=== PATIENT | male | born 1950 | race Two or more races ===

== ENCOUNTER 2020-12-29 10:47 | Outpatient (REF) | payer MEDICARE, SELFPAY | END 2020-12-29 10:48 | disposition home or self-care (01) | LOC: HO.LAB 10:47 | PROVIDERS: Visit Provider Internal Medicine | DX: Z20.822 Contact with and (suspected) exposure to COVID-19 (principal) | CPT/HCPCS: C9803; U0003; U0005 ==

== ENCOUNTER 2021-01-12 10:02 | Outpatient (REF) | payer MEDICARE, SELFPAY | END 2021-01-12 10:03 | disposition home or self-care (01) | LOC: HO.LAB 10:02 | PROVIDERS: Visit Provider Internal Medicine | DX: Z20.822 Contact with and (suspected) exposure to COVID-19 (principal) | CPT/HCPCS: C9803; U0003; U0005 ==

== ENCOUNTER 2021-11-09 08:29 | Outpatient (REF) | payer MEDICARE, SELFPAY ==
[2021-11-09 08:54] LABS: MANUAL DIFF FLAG NO
[2021-11-09 09:50] LABS: Basophils Absolute Auto 0.1 X10*3/uL (0.0-0.2); Basophils Percent Auto 0.7 % (0-2); Eosinophils Absolute Auto 0.5 X10*3/uL (0.0-0.4); Eosinophils Percent Auto 6.7 % (0-4); Hematocrit 43.7 % (42.0-52.0); Hemoglobin 14.3 g/dl (14.0-18.0); Imm Gran Abs Auto 0.03 X10*3/uL (0.00-0.03); Imm Gran Pct Auto 0.4 % (0.0-0.4); Lymphocytes Absolute Auto 2.9 X10*3/uL (1.2-4.9); Lymphocytes Percent Auto 40.7 % (20-40); Mean Corpuscular HGB Conc 32.7 g/dl (31.0-36.0); Mean Corpuscular Hemoglobin 29.5 pg (27.0-33.0); Mean Corpuscular Volume 90.3 fL (80.0-98.0); Mean Platelet Volume 11.6 fL (9.4-12.4); Monocytes Absolute Auto 0.7 X10*3/uL (0.1-1.2); Monocytes Percent Auto 10.2 % (2-11); Neutrophils Absolute Auto 2.9 x10*3/uL (2.0-8.3); Neutrophils Percent Auto 41.3 % (45-73); Platelet Count 208 X10*3/uL (160-400); Red Blood Count 4.84 X10*6/uL (4.60-5.80); Red Cell Distribution Width 12.1 % (11.0-16.0); White Blood Count 7.1 X10*3/uL (4.8-10.8)
[2021-11-09 10:17] LABS: Alanine Aminotransferase 16 U/L (0-40); Alkaline Phosphatase 62 U/L (39-117); Anion Gap 12 (12-20); Aspartate Amino Transferase 24 U/L (5-37); Bilirubin Total 0.9 mg/dL (0.0-1.0); Blood Urea Nitrogen 14 mg/dL (9-16); Calcium 9.3 mg/dL (8.4-10.2); Carbon Dioxide 31 mmol/L (22-29); Chloride 104 mmol/L (96-108); Cholesterol 186 mg/dL; Estimated Glomerular Filt Rate > 60; Glucose Random 106 mg/dL (60-115); HDL Cholesterol 57 mg/dL; LDL Cholesterol Calculated 117 mg/dl; Potassium 4.7 mmol/L (3.3-5.1); Sodium 142 mmol/L (135-145); Total Protein 7.1 g/dL (6.5-8.0); Triglycerides 64 mg/dL
[2021-11-09 10:42] LABS: Thyroid Stimulating Hormone 0.81 uIU/mL (0.32-4.0)
== END 2021-11-09 08:30 | disposition home or self-care (01) ==
LOC: HO.LAB 08:29
PROVIDERS: PCP Internal Medicine; Visit Provider Internal Medicine
DX: I10 Essential (primary) hypertension (principal); J45.909 Unspecified asthma, uncomplicated
CPT/HCPCS: 36415; 80053; 80061; 84443; 85025

== ENCOUNTER 2022-01-08 12:29 | Outpatient (REF) | payer MEDICARE, SELFPAY ==
--- NOTE | ~2022-01-08 | XR_ITS ---
EXAMINATION: XR ABDOMEN KUB CLINICAL INDICATION: Abdominal pain. COMPARISON: None TECHNIQUE: AP view of the abdomen. FINDINGS: The bowel gas pattern is nonspecific without any obstruction or ileus. There is no organomegaly. No radiopaque calculi seen. No gross bony abnormality. XR/XR KUB IMPRESSION: Unremarkable abdomen exam.
== END 2022-01-08 12:30 | disposition home or self-care (01) ==
LOC: HO.XRAY 12:29
PROVIDERS: PCP Internal Medicine; Visit Provider Internal Medicine
DX: K56.0 Paralytic ileus (principal)
CPT/HCPCS: 74018

== ENCOUNTER 2022-10-09 11:25 | Outpatient (REF) | payer MEDICARE, SELFPAY ==
[2022-10-09 11:56] LABS: COVID-19 Test Negative (Negative); IDNOW Serial# 16C4AD1C
== END 2022-10-09 11:26 | disposition home or self-care (01) ==
LOC: HO.LAB 11:25
PROVIDERS: Visit Provider Internal Medicine
DX: Z20.822 Contact with and (suspected) exposure to COVID-19 (principal)
CPT/HCPCS: 87635; C9803

== ENCOUNTER → 2023-02-13 12:39 | Outpatient (BNVA) | payer MEDICARE, SELFPAY | PROVIDERS: PCP Internal Medicine; Referring Provider Internal Medicine; Visit Provider Internal Medicine | DX: R07.2 Precordial pain (principal); R00.2 Palpitations; R00.0 Tachycardia, unspecified; I10 Essential (primary) hypertension | CPT/HCPCS: 93005; 99202 ==

== ENCOUNTER → 2023-03-05 13:55 | Outpatient (REF) | payer MEDICARE, SELFPAY ==
--- NOTE | 2023-03-05 13:58 | CA_ITS ---
Transthoracic Echocardiogram Patient (Last, First, Middle): Ethan Alvarez, Gender: Male Date of : 1950 Age: 72 Procedure Date: 03/05/2023 Procedure Type: Transthoracic Echocardiogram Location: OP Height: 172.72 cm Weight: 77.11 kg BSA: 1.91 m2 Heart Rate: 69 bpm BP: 146 / 80 mmHg Assistant General Manager: TO Referring MD: Kahlil Reyes MD Billing Rep: Tito Chamberlain MD Symptoms: R07.2 - Precordial pain Study Quality: Adequate ECG Rhythm: Sinus Conclusions: - 1. Normal LV systolic function with impaired relaxation filling pattern 2. Paradoxical low-flow severe aortic stenosis 3. Normal RV systolic pressure 4. No gross pericardial effusion Findings Left Ventricle Normal left ventricular size, thickness, and systolic function. The visually estimated ejection fraction is between 55-60%. Spectral Doppler is indicative of an impaired relaxation filling pattern. E/E prime ratio is between 8 and 15 consistent with indeterminate filling pressures. Right Ventricle Normal right ventricular cavity size and systolic function. Atria The left atrium is normal in size. There is no evidence of interatrial shunt. Aortic Valve There is moderate calcification of the aortic valve. There is moderate thickening of the aortic valve. There is severe aortic valve stenosis. The peak aortic gradient is 51 mmHg.The mean gradient is 25 mmHg. The aortic valve area is 0.70 cm2. There is no aortic valve regurgitation. Dimensionless index is 0.18, c/w severe aortic stenosis, with overall findings consistent with paradoxical low-flow aortic stenosis Mitral Valve There is moderate anterior and mild posterior mitral leaflet thickening. There is mild anterior mitral annular calcification. There is trace mitral valve regurgitation. There is no mitral valve stenosis. Pulmonic Valve The pulmonic valve was not well visualized. Tricuspid Valve Likely normal tricuspid valve structure and function. There is mild tricuspid valve regurgitation. The right ventricular systolic pressure is normal. The right ventricular systolic pressure is 27 mmHg. Normal right atrial pressure. There is no evidence of pulmonary hypertension. Great Vessels All visible segments of the aorta are normal in size. The pulmonary artery was not well visualized. Venous The inferior vena cava is normal in size and collapses greater than 50% with inspiration. Pericardium/Pleural There is no evidence of pericardial effusion. Prior Study Comparison No prior study available for comparison. Measurements 2D Linear Measurements IVSd: 1.16 0.6-0.9/0.6-1.0 cm LVIDd: 4.95 3.9-5.3/4.2-5.9 cm LVIDd Index: 2.59 2.4-3.2/2.2-3.1 cm/m2 LVIDs: 3.14 2.0-3.6 cm LVPWd: 0.90 0.7-1.1 cm LA Diam: 3.70 2.7-3.8/3.0-4.0 cm LAIDs Index: 1.94 1.5-2.3 cm/m2 LV Mass: 231.65 67-162/88-224 g LV Mass Index: 121.28 43-95/49-115 g/m2 LVOT Diam: 2.20 3.0+(-)1.3 cm 2D Systolic Function EF 4C: 59.30 >55% EF 2C: 59.10 >55% EF BiP: 57.70 >55% Mitral Valve MV Pk E: 0.66 MV PK A: 0.72 MV Decel Time: 209.00 E/A: 0.90 E'Lateral: 6.64 E'Medial: 5.00 E/E' Med: 13.10 E/E' Lat: 9.90 PHT: 61.00 MVA PHT: 3.61 Decel Ward: 3.14 Aortic Valve AoV Pk Loki: 3.57 AoV Mn Loki: 2.25 AoV VTI: 0.90 AoV Pk Grad: 51.00 Aov Mn Grad: 25.00 KAYLYNN Cont.VTI: 0.70 LVOT LVOT Pk Loki: 0.56 LVOT Mn Loki: 0.40 LVOT VTI: 0.17 LVOT Pk Grad: 1.00 LVOT Mn Grad: 1.00 LVOT Diam: 2.20 LVOT Area: 3.80 Diastolic Function MV Pk E: 0.66 MV Pk A: 0.72 E/A: 0.90 E'Medial: 5.00 E/E' Med: 13.10 E' Laterial: 6.64 E/E' Lat: 9.90 Right Ventricle TAPSE (mm): 26.10 TVS' Loki: 10.40 Tricuspid Valve TR Pk Loki: 2.43 TR Pk Grad: 24.00 RA Press: 3.00 RVSP: 27.00 Great Vessels Aorta Sinus of Valsalva: 3.65 2.0-3.[address] [place]: 2.50 1.7-3.4 cm Ao Asc: 3.30 2.1-3.4 cm Updated in Other Vendor System with Status of Final Tito Chamberlain MD electronically signed on 03/06/2023 3:29:22 PM with status of Final
== END ==
LOC: HO.CARD 13:55
PROVIDERS: PCP Internal Medicine; Visit Provider Internal Medicine
DX: R07.2 Precordial pain (principal)
CPT/HCPCS: 93306

== ENCOUNTER 2023-03-14 12:49 | Outpatient (REF) | payer MEDICARE, SELFPAY ==
[2023-03-14 13:42] LABS: Basophils Absolute Auto 0.1 X10*3/uL (0.0-0.2); Eosinophils Absolute Auto 2.2 X10*3/uL (0.0-0.4); Eosinophils Percent Auto 23.9 % (0-4); Hemoglobin 13.6 g/dl (14.0-18.0); Imm Gran Abs Auto 0.03 X10*3/uL (0.00-0.03); Imm Gran Pct Auto 0.3 % (0.0-0.4); Lymphocytes Absolute Auto 3.1 X10*3/uL (1.2-4.9); Lymphocytes Percent Auto 33.6 % (20-40); MANUAL DIFF FLAG SCAN; Mean Corpuscular HGB Conc 33.2 g/dl (31.0-36.0); Mean Corpuscular Hemoglobin 29.6 pg (27.0-33.0); Mean Corpuscular Volume 89.1 fL (80.0-98.0); Mean Platelet Volume 11.6 fL (9.4-12.4); Monocytes Absolute Auto 0.8 X10*3/uL (0.1-1.2); Monocytes Percent Auto 8.6 % (2-11); Neutrophils Percent Auto 32.6 % (45-73); Platelet Count 170 X10*3/uL (160-400); Red Cell Distribution Width 12.5 % (11.0-16.0); SCAN SMEAR FLAG 1; White Blood Count 9.2 X10*3/uL (4.8-10.8)
[2023-03-14 14:08] LABS: SLIDE REVIEW VERIFIED
[2023-03-14 15:16] LABS: Alanine Aminotransferase 17 U/L (0-40); Albumin Level 3.9 g/dL (3.5-5.0); Alkaline Phosphatase 61 U/L (39-117); Anion Gap 8 (12-20); Aspartate Amino Transferase 27 U/L (5-37); Bilirubin Total 1.4 mg/dL (0.0-1.0); Blood Urea Nitrogen 12 mg/dL (9-16); Calcium 8.4 mg/dL (8.4-10.2); Carbon Dioxide 28 mmol/L (22-29); Chloride 108 mmol/L (96-108); Cholesterol 169 mg/dL; Estimated Glomerular Filt Rate > 60; HDL Cholesterol 49 mg/dL; LDL Cholesterol Calculated 102 mg/dl; Potassium 3.4 mmol/L (3.3-5.1); Prostate Specific Antigen 1.17 ng/mL (<0.05-4.0); Sodium 141 mmol/L (135-145); Thyroid Stimulating Hormone 0.85 uIU/mL (0.32-4.0); Triglycerides 92 mg/dL
[2023-03-14 15:33] LABS: Glucose Fasting 85 mg/dL (60-99); Total Protein 7.1 g/dL (6.5-8.0)
== END 2023-03-14 12:50 | disposition home or self-care (01) ==
LOC: HO.10HDL 12:49
PROVIDERS: Visit Provider Internal Medicine
DX: Z00.00 Encounter for general adult medical examination without abnormal findings (principal); Z12.5 Encounter for screening for malignant neoplasm of prostate; J45.909 Unspecified asthma, uncomplicated; N52.1 Erectile dysfunction due to diseases classified elsewhere; R00.2 Palpitations
CPT/HCPCS: 36415; 80053; 80061; 84153; 84443; 85025

== ENCOUNTER 2023-04-01 14:25 | Outpatient (AMB) | payer MEDICARE, SELFPAY ==
--- NOTE | 2023-04-01 14:51 | MHC.OFFVIS ---
Intake Vital Signs 04/01/23 15:00 Height 5 ft 8 in Weight 165 lb 5.547 oz BMI 25.1 BP 120/70 Blood Pressure Location Rt brachial Position Sitting Pulse 75 Pulse Oximetry (%) 98 Intake Visit Reasons: follow up echo Intake Note: follow up echo Sand Hauler Required: No Sand Hauler Name: maisha obrien [id number] Allergies No Known Allergies Allergy (Verified 04/01/23 15:04) Medication List - Last Reconciled 04/01/23 by Lien Hurt NP-C hydrochlorothiazide 12.5 mg PO DAILY HPI follow up echo HPI Details Ethan is a 72-year-old male with past medical history of hypertension, heart murmur, chest discomfort, who recently underwent an echocardiogram showing low-flow severe and presents for follow-up. Today he reports that he has not had any recurrent chest discomfort since last visit. He denies chest discomfort with walking or stair climbing. He has some shortness of breath with exertion Which he relates to asthma. No heart palpitations, dizziness, presyncope, syncope, falls. No PND, orthopnea or edema. takes his medications as directed. Going to the gym 4 times weekly and doing light weights and light cardio. 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 COUNTS INCLUDE 234 BEDS AT THE [facility] Medical History (Updated 04/01/23 @ 17:43 by Lien Hurt, YESSENIA-C) Essential hypertension Family History Mother No problems noted. Father Cirrhosis Social History Alcohol intake: never Patient Tobacco Use Status: Never used Tobacco Review of Systems Const All systems reviewed & are unremarkable except as noted in HPI and below ENT Reports dizziness Card Denies chest pain, Denies chest pain at rest, Denies chest pain with activity, Denies rapid heart rate, Denies pedal edema, Denies edema, Denies leg edema, Denies lightheadedness, Denies palpitations, Denies dyspnea, Reports dyspnea on exertion and Denies orthopnea Resp Denies cough, Denies dyspnea and Reports dyspnea on exertion GI Denies hematochezia and Denies change in stool character Musc Denies abnormal gait, Reports limited range of motion, Reports muscle cramps, Denies muscle weakness, Denies numbness, Denies radiating pain into limb, Denies stiffness and Denies tingling Neuro Denies abnormal gait, Reports dizziness, Denies numbness and Denies tingling Endo Denies palpitations Physical Exam Vital Signs: Last Vital Signs Pulse 75 04/01/23 15:00 BP 120/70 04/01/23 15:00 Pulse Ox 98 04/01/23 15:00 BMI result Body Mass Index 25.1 Const General: cooperative, healthy appearing, comfortable and no acute distress Orientation/consciousness: patient oriented x3 Neck Neck: Yes normal visual inspection Resp Effort & Inspection: normal respiratory effort Auscultation: clear to auscultation bilaterally, no crackles, no rales, no rhonchi and no wheezes Cardio Other: Faint systolic murmur Jugular venous distension: no JVD Rate: regular rate Rhythm: regular rhythm Heart sounds: S2 normal heart sound present and no rubs Neuro General: patient oriented x3 Extrem General: Yes normal to inspection Psych Appearance: grossly normal Mental Status: mental status grossly normal Speech and movement: Normal speech and movement present Assessment & Plan Assessment & Plan (1) Precordial chest pain: Code(s): R07.2 - Precordial pain Plan: Cardiac evaluation starting 02/13/2023 for episode of exertional chest discomfort when at the gym. He has history of hypertension and noted to have heart murmur. No cardiac history. EKG done last visit showing normal sinus rhythm with possible left atrial enlargement, rate 67. he underwent echocardiogram on 03/05/2023 showing EF 55-60%, severe , low flow with mean gradient 25 mmHg an aortic valve area 0.7 centimeter sq. Heart murmur noted on examination. Patient denies recurrent chest discomfort but does admit to shortness of breath with exertional activities that he relates to asthma. Spent time reviewing echo findings of severe aortic stenosis with him. Since he does report symptoms he will need to undergo diagnostic cardiac catheterization for further evaluation. Risks of the procedure reviewed. He has no contrast dye allergy and has previously normal kidney function. He is agreeable to proceed. Preprocedure labs ordered. Cardiology follow-up 2 weeks post cath, sooner if needed. (2) Severe aortic stenosis: Code(s): I35.0 - Nonrheumatic aortic (valve) stenosis (3) Preop cardiovascular exam: Code(s): Z01.810 - Encounter for preprocedural cardiovascular examination Plan: preprocedure for cardiac catheterization. Orders placed. Full procedure and risks explained using certified court interpreter. (4) Essential hypertension: Code(s): I10 - Essential (primary) hypertension Plan: Normal range at present time. No med changes made. Orders: Orders Basic Metabolic Panel 04/01/23 I35.0 - Nonrheumatic aortic (valve) stenosis, Z01.810 - Encounter for preprocedural cardiovascular examination Prothrombin Time INR 04/01/23 I35.0 - Nonrheumatic aortic (valve) stenosis, Z01.810 - Encounter for preprocedural cardiovascular examination Complete Blood Count Auto Diff 04/01/23 I35.0 - Nonrheumatic aortic (valve) stenosis, Z01.810 - Encounter for preprocedural cardiovascular examination Cardiac Cath LT Diagnostic 04/01/23 I35.0 - Nonrheumatic aortic (valve) stenosis, R07.2 - Precordial pain, Z01.810 - Encounter for preprocedural cardiovascular examination Coding Level of Care Code Est Pt Level 4 (41846) Diagnoses Precordial chest pain R07.2 Severe aortic stenosis I35.0 Preop cardiovascular exam Z01.810 Essential hypertension I10 Time Spent (min) 30 Comment Chart review, documentation, interview, assessment
[2023-04-01 15:00] VITALS: BP 120/70; PULSE 75; O2SAT 98; BMI 25.1
== END 2023-04-01 15:44 | disposition home or self-care (01) ==
PROVIDERS: PCP Internal Medicine; Visit Provider Nurse Practitioner Family
DX: R07.2 Precordial pain (principal); I35.0 Nonrheumatic aortic (valve) stenosis; Z01.810 Encounter for preprocedural cardiovascular examination; I10 Essential (primary) hypertension
CPT/HCPCS: 99214

== ENCOUNTER → 2023-04-01 14:25 | Outpatient (BNVA) | payer MEDICARE, SELFPAY | PROVIDERS: PCP Internal Medicine; Visit Provider Nurse Practitioner Family | DX: Z01.810 Encounter for preprocedural cardiovascular examination (principal); R07.2 Precordial pain; R01.1 Cardiac murmur, unspecified; I35.0 Nonrheumatic aortic (valve) stenosis; I10 Essential (primary) hypertension | CPT/HCPCS: 99212 ==

== ENCOUNTER 2023-05-09 11:33 | Outpatient (REF) | payer MEDICARE, SELFPAY ==
[2023-05-09 11:43] LABS: MANUAL DIFF FLAG NO
[2023-05-09 12:21] LABS: Basophils Absolute Auto 0.1 X10*3/uL (0.0-0.2); Basophils Percent Auto 0.8 % (0-2); Eosinophils Absolute Auto 1.5 X10*3/uL (0.0-0.4); Eosinophils Percent Auto 16.1 % (0-4); Hemoglobin 14.1 g/dl (14.0-18.0); Imm Gran Abs Auto 0.03 X10*3/uL (0.00-0.03); Imm Gran Pct Auto 0.3 % (0.0-0.4); Lymphocytes Absolute Auto 3.2 X10*3/uL (1.2-4.9); Lymphocytes Percent Auto 33.9 % (20-40); Mean Corpuscular HGB Conc 33.6 g/dl (31.0-36.0); Mean Corpuscular Hemoglobin 30.2 pg (27.0-33.0); Mean Corpuscular Volume 89.9 fL (80.0-98.0); Mean Platelet Volume 11.7 fL (9.4-12.4); Monocytes Percent Auto 10.8 % (2-11); Neutrophils Absolute Auto 3.6 x10*3/uL (2.0-8.3); Neutrophils Percent Auto 38.1 % (45-73); Platelet Count 210 X10*3/uL (160-400); Red Blood Count 4.67 X10*6/uL (4.60-5.80); Red Cell Distribution Width 12.5 % (11.0-16.0); White Blood Count 9.6 X10*3/uL (4.8-10.8)
[2023-05-09 12:29] LABS: INTERNATIONAL NORM RATIO 0.9 (0.9-1.1); Prothrombin Time 11.1 SEC (11.1-13.3)
[2023-05-09 13:11] LABS: Anion Gap 10 (12-20); Blood Urea Nitrogen 9 mg/dL (9-16); Calcium 9.2 mg/dL (8.4-10.2); Carbon Dioxide 28 mmol/L (22-29); Chloride 107 mmol/L (96-108); Estimated Glomerular Filt Rate > 60; Glucose Random 90 mg/dL (60-115); Potassium 3.9 mmol/L (3.3-5.1); Sodium 141 mmol/L (135-145)
== END 2023-05-09 11:34 | disposition home or self-care (01) ==
LOC: HO.LAB 11:33
PROVIDERS: PCP Internal Medicine; Visit Provider Nurse Practitioner Family
DX: Z01.810 Encounter for preprocedural cardiovascular examination (principal); I35.0 Nonrheumatic aortic (valve) stenosis
CPT/HCPCS: 36415; 80048; 85025; 85610

== ENCOUNTER → 2023-05-14 23:59 | Outpatient (BNV) | payer MEDICARE, SELFPAY | PROVIDERS: PCP Internal Medicine; Visit Provider Internal Medicine Cardiovascular Disease | DX: I20.8 Other forms of angina pectoris (principal); R07.9 Chest pain, unspecified | CPT/HCPCS: 93460; 93566; 99152 ==

== ENCOUNTER 2023-05-23 09:46 | Outpatient (AMB) | payer MEDICARE, SELFPAY ==
[2023-05-23 10:14] VITALS: BP 120/60; PULSE 68; BMI 25.5
--- NOTE | 2023-05-23 10:14 | A.OFFVIS_ITS ---
Intake Vital Signs 05/23/23 10:14 Height 5 ft 8 in Weight 167 lb 8.821 oz BMI 25.5 BP 120/60 Blood Pressure Location Lt brachial Position Sitting Pulse 68 Intake Visit Reasons: Follow up post cardiac cath Intake Note: f/u post cardiac cath patent felling good Cognos Consultant Required: Yes Cognos Consultant Name: maisha bledsoe [id number] Allergies No Known Allergies Allergy (Verified 05/23/23 10:18) Medication List - Last Reconciled 05/23/23 by Lien Hurt NP-Murali hydrochlorothiazide 12.5 mg PO DAILY HPI Follow up post cardiac cath HPI Details Ethan is a 73-year-old male with past medical history of hypertension, heart murmur who was recently found to have severe aortic stenosis and then underwent a diagnostic cardiac catheterization. Today he reports he has been feeling well overall. He admits to only mild shortness of breath at times which he says is his asthma. He denies exertional chest discomfort or shortness of breath. No presyncope, syncope, falls. No PND, orthopnea or edema. He tells me he goes to the gym 3-4 times weekly and does light lifting and treadmill. 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 Taking meds as directed. Right radial catheterization site well healed. 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 [facility] Medical History Essential hypertension Surgical History (Updated 05/23/23 @ 10:50 by Lien Hurt NP-Murali) History of cardiac catheterization Family History Mother No problems noted. Father Cirrhosis Social History Alcohol intake: never Patient Tobacco Use Status: Never used Tobacco Review of Systems Const All systems reviewed & are unremarkable except as noted in HPI and below ENT Denies dizziness Card Denies chest pain, Denies chest pain at rest, Denies chest pain with activity, Denies rapid heart rate, Denies pedal edema, Denies edema, Denies leg edema, Denies lightheadedness, Denies palpitations, Denies dyspnea, Reports dyspnea on exertion and Denies orthopnea Resp Denies cough, Denies dyspnea and Reports dyspnea on exertion GI Denies hematochezia and Denies change in stool character Musc Denies abnormal gait, Denies limited range of motion, Denies muscle cramps, Denies muscle weakness, Denies numbness, Denies radiating pain into limb, Denies stiffness and Denies tingling Neuro Denies abnormal gait, Denies dizziness, Denies numbness and Denies tingling Endo Denies palpitations Physical Exam Vital Signs: Last Vital Signs BP 120/60 05/23/23 10:14 BMI result Body Mass Index 25.5 Const General: cooperative, healthy appearing, comfortable and no acute distress Orientation/consciousness: patient oriented x3 Neck Neck: Yes normal visual inspection and Yes no JVD Resp Effort & Inspection: normal respiratory effort Auscultation: clear to auscultation bilaterally, no crackles, no rales, no rhonchi and no wheezes Cardio Jugular venous distension: no JVD Rate: regular rate Rhythm: regular rhythm Heart sounds: no gallops, Murmur heart sound present (Holosystolic murmur right sternal border) and no rubs Neuro General: patient oriented x3 Extrem Other: Right radial catheterization site with easily palpable radial pulse, hand assessment normal General: Yes normal to inspection Psych Appearance: grossly normal Mental Status: mental status grossly normal Speech and movement: Normal speech and movement present Assessment & Plan Assessment & Plan (1) Severe aortic stenosis: Code(s): I35.0 - Nonrheumatic aortic (valve) stenosis Plan: Recent cardiac evaluation for report of episode of exertional chest discomfort. He was noted to have a heart murmur. No prior known cardiac history. He underwent an echocardiogram on 03/05/2023 showing EF 55-60%, severe low flow with mean gradient 25 mmHg and aortic valve area 0.7 centimeter sq. On follow- up with me he reported some shortness of breath with activity which he related to his asthma. He did report good activity tolerance overall and goes to the gym 4 times weekly. Diagnostic cardiac catheterization done 05/14/2023 showing only minimal luminal irregularities in the LAD and RCA. Test results reviewed with him in detail. Will order an exercise stress test to assess for exertional symptoms, drop in blood pressure. He is known to have severe so this will be a symptom limited test only. If shown to have symptoms then plan to refer him for TAVR. If asymptomatic in good activity tolerance then will arrange for follow-up in office in 3 months, sooner if needed for re-evaluation. (2) History of cardiac catheterization: Comment: 05/14/2023, left main and LCX normal, lad and RCA each with minimal luminal irregularities Code(s): Z98.890 - Other specified postprocedural states Plan: Right radial catheterization site well healed (3) Essential hypertension: Code(s): I10 - Essential (primary) hypertension Plan: Controlled at present time, 120/60. Continue hydrochlorothiazide, no change Orders: Orders CA stress test Today I35.0 - Nonrheumatic aortic (valve) stenosis Coding Level of Care Code Est Pt Level 3 (27329) Diagnoses Severe aortic stenosis I35.0 History of cardiac catheterization Z98.890 Essential hypertension I10 Time Spent (min) 24 Comment Chart review, documentation, interview, assessment
== END 2023-05-23 10:45 | disposition home or self-care (01) ==
PROVIDERS: PCP Internal Medicine; Referring Provider Internal Medicine; Visit Provider Nurse Practitioner Family
DX: I35.0 Nonrheumatic aortic (valve) stenosis (principal); Z98.890 Other specified postprocedural states; I10 Essential (primary) hypertension
CPT/HCPCS: 99213

== ENCOUNTER → 2023-05-23 09:46 | Outpatient (BNVA) | payer MEDICARE, SELFPAY | PROVIDERS: PCP Internal Medicine; Referring Provider Internal Medicine; Visit Provider Nurse Practitioner Family | DX: I35.0 Nonrheumatic aortic (valve) stenosis (principal); I10 Essential (primary) hypertension; Z79.899 Other long term (current) drug therapy; Z98.890 Other specified postprocedural states | CPT/HCPCS: 99212 ==

== ENCOUNTER 2023-06-24 13:54 | Outpatient (AMB) | payer MEDICARE, SELFPAY ==
--- NOTE | 2023-06-24 14:03 | A.OFFVIS_ITS ---
Intake Vital Signs 06/24/23 14:04 Height 5 ft 8 in Weight 165 lb BMI 25.1 BP 121/59 L Blood Pressure Location Lt brachial Position Sitting Pulse 74 Intake Visit Reasons: Colonoscopy Screening Intake Note: Patient 2nd pre colonoscopy screening. Patient denies any GI issues. Forms Examiner Required: Yes Forms Examiner Name: [facility] interpeter Accompanied by: Self / Same As Patient Allergies No Known Allergies Allergy (Verified 06/24/23 14:03) Medication List - Last Reconciled 06/24/23 by Tamy Ferreira PA-C hydrochlorothiazide 12.5 mg PO DAILY HPI HPI Comments History of Present Illness Details A 73 y/o male referred for screening colonoscopy. Last colonoscopy and upper endoscopy 20o8 [place] were normal HCTZ- prn only- he checks his BP- He had cardiac catheterization back in the summer he says he has had follow-up testing which is all been good news. Appetite is good, he has no acid reflux-or dysphagia bowels are normal. 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 Father Cirrhosis Social History Alcohol intake: never Patient Tobacco Use Status: Never used Tobacco Review of Systems Card Denies chest pain and Denies dyspnea Resp Denies dyspnea GI Denies abdominal pain, Denies change in bowel habits, Denies diarrhea, Denies nausea and Denies vomiting Physical Exam Vital Signs: Last Vital Signs Pulse 74 06/24/23 14:04 BP 121/59 L 06/24/23 14:04 BMI result Body Mass Index 25.1 Const General: healthy appearing, comfortable and no acute distress Orientation/consciousness: patient oriented x3 Limitations: language barrier Eyes Sclerae: sclerae normal Cardio Rate: regular rate Rhythm: regular rhythm Heart sounds: Murmur heart sound present GI Palpation (GI): Soft to palpation and nontender Auscultation: normal bowel sounds Neuro General: patient oriented x3 Extrem General: Yes full ROM Psych Appearance: grossly normal and well kempt Mental Status: mental status grossly normal Speech and movement: Normal speech and movement present and Clear speech present Affect: normal affect Attitude: cooperative Thought process: Normal thought process present Thought content: Normal thought content present Results Reviewed Results Reviewed: Reviewed cardiology no 05/23/2023 Assessment & Plan Assessment & Plan (1) Severe aortic stenosis: Code(s): I35.0 - Nonrheumatic aortic (valve) stenosis (2) History of cardiac catheterization: Comment: 05/14/2023, left main and LCX normal, lad and RCA each with minimal luminal irregularities Code(s): Z98.890 - Other specified postprocedural states Plan: Recommend he follow up with Cardiology in regard to HCTZ Plan Review procedure, need for escorted due to anesthesia as well as prep Will need cardiac clearance due to cardiac catheterization Colonoscopy when timing appropriate-he prefers to wait until after holidays due to previous commitment Orders: Orders Colonoscopy - GI Use Only Today Z12.11 - Encounter for screening for malignant neoplasm of colon Medications: New bisacodyl (Dulcolax (bisacodyl)) Take 4 tablets by mouth at 12:00pm the day before your procedure. 20 mg (4 x 5 mg) PO ONCE 4 tabs 0RF colonoscopy prep 1 day Z12.11 - Encounter for screening for malignant neoplasm of colon polyethylene glycol 3350 (Miralax) Take as directed by mouth the day before your procedure. 238 grams PO ONCE PRN 238 grams 0RF laxative effect 1 day Patient Instructions: A very pleasant 73-year-old male-severe aortic stenosis,s/p cardiac catheterization referred for screening colonoscopy no GI or general complaints - Reinforced importance of follow prescriptions as prescribed by cardiology-he agrees to inform Screening colonoscopy with cardiac clearance MiraLax Gatorade split prep-literature Encouraged to call questions or concerns Coding Level of Care Code New Pt Level 3 (95812) Diagnoses Severe aortic stenosis I35.0 History of cardiac catheterization Z98.890 Time Spent (min) 30 Comment Forms Examiner-Renee
[2023-06-24 14:04] VITALS: BP 121/59; PULSE 74; BMI 25.1
== END 2023-06-24 15:30 | disposition home or self-care (01) ==
PROVIDERS: PCP Internal Medicine; Visit Provider Physician Assistant
DX: I35.0 Nonrheumatic aortic (valve) stenosis (principal); Z98.890 Other specified postprocedural states
CPT/HCPCS: 99203

== ENCOUNTER → 2023-06-24 13:54 | Outpatient (BNVA) | payer MEDICARE, SELFPAY | PROVIDERS: PCP Internal Medicine; Visit Provider Physician Assistant ==

== ENCOUNTER 2023-06-26 13:06 | Outpatient (REF) | payer MEDICARE, SELFPAY | END 2023-06-26 13:07 | disposition home or self-care (01) | LOC: HO.LNP 13:06 | PROVIDERS: Visit Provider Internal Medicine | DX: N30.00 Acute cystitis without hematuria (principal); N40.1 Benign prostatic hyperplasia with lower urinary tract symptoms | CPT/HCPCS: 87086 ==

== ENCOUNTER → 2023-07-09 07:49 | Outpatient (REF) | payer MEDICARE, SELFPAY ==
--- NOTE | 2023-07-09 07:53 | CA_ITS ---
Acquisition Time: 2023-07-09 08:04:12 Total Exercise Time: 00:09:30 Test Indications: Dyspnea SEVERE AORTIC STENOSIS Medications: HCTZ Protocol: HAI Max HR: 157 BPM 105% of Pred: 149 BPM Max BP: 200/110 mmHG Max Work Load: 10.9 METS Exercise stress test exercise 9 min 30 sec of Hai protocol achieving 105% MPHR, without anginal symptoms, isolated PVCs and PAC, ventricular cuplet, with normotensive response to exercise and hypertensive response in recovery max BP 200/110 at almost 7 min of recovery, with changes of downsloping in leads 2, 3, aVF, V4-V6. BP and EKGs returned to baseline. Test reviewed with Dr. Reyes. Referred By: Lien Hurt Overread By: Rohini Corrales
== END ==
LOC: HO.CARD 07:49
PROVIDERS: PCP Internal Medicine; Visit Provider Nurse Practitioner Family
DX: I35.0 Nonrheumatic aortic (valve) stenosis (principal)
CPT/HCPCS: 93017

== ENCOUNTER → 2023-07-09 07:53 | Outpatient (BNV) | payer MEDICARE, SELFPAY | PROVIDERS: PCP Internal Medicine; Visit Provider Nurse Practitioner | DX: I35.0 Nonrheumatic aortic (valve) stenosis (principal) | CPT/HCPCS: 93016; 93018 ==

== ENCOUNTER 2023-08-20 10:33 | Outpatient (AMB) | payer MEDICARE, SELFPAY ==
--- NOTE | 2023-08-20 10:37 | A.OFFVIS_ITS ---
Intake Vital Signs 08/20/23 10:38 Height 5 ft 8 in Weight 167 lb 8.821 oz BMI 25.5 BP 120/66 Blood Pressure Location Lt brachial Position Sitting Pulse 66 Intake Visit Reasons: 4 month follow up Intake Note: 4 month follow up Guest Experience Representative Required: Yes Guest Experience Representative Language: Soiled Linen Distributor Name: [id number] Kennedy Accompanied by: Self / Same As Patient Allergies No Known Allergies Allergy (Verified 08/20/23 10:40) Medication List - Last Reconciled 08/20/23 by Kahlil Reyes MD hydrochlorothiazide 12.5 mg PO DAILY HPI HPI Comments History of Present Illness Details Ethan returns for follow-up. In the past, was seen regarding chest pain which seems somewhat vague. He underwent a comprehensive workup including echocardiogram that showed paradoxical low-flow, low gradient severe aortic stenosis. Subsequently, underwent cardiac catheterization but no significant CAD. As symptoms were somewhat inconclusive, he underwent ETT and he did actually quite well in that. Today, he states he feels fine. He has got absolutely no cardiac symptoms of concern. He states he even works out regularly and feels fine. [facility] Medical History (Updated 08/20/23 @ 11:39 by Kahlil Reyes MD) Essential hypertension Surgical History History of cardiac catheterization Family History Mother No problems noted. Father Cirrhosis Alcohol intake: never Patient Tobacco Use Status: Never used Tobacco Review of Systems Const Denies weakness ENT Denies dizziness Card Denies chest pain, Denies chest pain with activity, Denies syncope, Denies rapid heart rate, Denies pedal edema, Denies edema, Denies leg edema, Denies lightheadedness, Denies palpitations, Denies dyspnea, Denies dyspnea on exertion and Denies orthopnea Resp Denies cough, Denies dyspnea and Denies dyspnea on exertion GI Denies hematochezia and Denies change in stool character Musc Denies abnormal gait, Denies muscle cramps, Denies muscle weakness, Denies numbness, Denies radiating pain into limb and Denies tingling Neuro Denies abnormal gait, Denies dizziness, Denies syncope, Denies numbness, Denies tingling and Denies weakness Endo Denies palpitations Physical Exam Vital Signs: Last Vital Signs Pulse 66 08/20/23 10:38 BP 120/66 08/20/23 10:38 BMI result Body Mass Index 25.5 Const General: comfortable and no acute distress Orientation/consciousness: patient oriented x3 HEENT Other: Unremarkable Head: Yes normal to inspection Neck Neck: Yes normal visual inspection Chest Chest palpation & inspection: normal inspection of the chest Resp Auscultation: clear to auscultation bilaterally Cardio Palpation: normal PMI Heart sounds: S1 normal heart sound present, S2 normal heart sound present, no gallops, Murmur heart sound present systolic II/ and at the right sternal border and no rubs GI Palpation (GI): Soft to palpation Back/Spine/Pelvis Other: unremarkable Skin General skin exam: no rashes or lesions noted Neuro General: patient oriented x3 Extrem General: Yes normal to inspection Psych Mental Status: mental status grossly normal Assessment & Plan Assessment & Plan (1) Nonrheumatic aortic (valve) stenosis: Code(s): I35.0 - Nonrheumatic aortic (valve) stenosis Plan Cardiac studies reviewed. In the recent echocardiogram, mean gradient across aortic valve was 25 mm Hg. Peak 51 mm Hg. Calculated valve area of 0.7 sq cm. Dimensionless index 0.18. LVEF preserved at 55-60%. In the cardiac catheterization, minimal irregularities in the LAD and RCA but otherwise normal coronary arteries. Mean gradient was 38 mm Hg and aortic valve area of 0.8 sq cm and it was felt that he had severe aortic stenosis. Due to lack of clear symptoms, he underwent ETT. He exercised for 10.9 Mets on Junito protocol; exercise duration of 9 minutes and 30 seconds. Normal blood pressure response to exercise on hypertensive response in the recovery phase. No concerning symptoms. Overall, he has asymptomatic severe aortic stenosis with excellent exercise tolerance. We will repeat echocardiogram in about 6 months time. If there is any evidence of LV dysfunction, then we could justify proceeding with TAVR even with lack of symptoms. Otherwise, we can continue to monitor. In case, he develops any symptoms like chest pain or shortness of breath or feeling dizzy or presyncopal strongly advised to contact us immediately. He understands. Orders: Orders CA echo transthoracic complete 6 Months I35.0 - Nonrheumatic aortic (valve) stenosis Coding Level of Care Code Est Pt Level 4 (47554) Diagnoses Nonrheumatic aortic (valve) stenosis I35.0
[2023-08-20 10:38] VITALS: BP 120/66; PULSE 66; BMI 25.5
== END 2023-08-20 10:53 | disposition home or self-care (01) ==
PROVIDERS: PCP Internal Medicine; Visit Provider Internal Medicine
DX: I35.0 Nonrheumatic aortic (valve) stenosis (principal)
CPT/HCPCS: 99214

== ENCOUNTER → 2023-08-20 10:33 | Outpatient (BNVA) | payer MEDICARE, SELFPAY | PROVIDERS: PCP Internal Medicine; Visit Provider Internal Medicine | DX: I35.0 Nonrheumatic aortic (valve) stenosis (principal) | CPT/HCPCS: 99212 ==

== ENCOUNTER 2023-09-09 10:45 | Outpatient (REF) | payer MEDICARE, SELFPAY ==
--- NOTE | ~2023-09-09 | XR_ITS ---
EXAMINATION: XR SHOULDER, RIGHT CLINICAL INFORMATION: Pain in right shoulder COMPARISON: None available. TECHNIQUE: Neutral AP and transscapular Y view of the right shoulder. FINDINGS: The bones are intact. No fracture. Glenohumeral and acromioclavicular alignment is anatomic. There is marked degenerative change of the acromioclavicular joint. There is mild to moderate narrowing of the glenohumeral joint. No abnormal soft tissue calcifications. XR/XR shoulder RT min 2V IMPRESSION: Degenerative changes. No acute bony abnormality.
== END 2023-09-09 10:46 | disposition home or self-care (01) ==
LOC: HO.HOSX 10:45
PROVIDERS: Visit Provider Orthopaedic Surgery
DX: M25.811 Other specified joint disorders, right shoulder (principal); M25.511 Pain in right shoulder
CPT/HCPCS: 20610; 73030; 99202; J1020

== ENCOUNTER 2023-09-09 10:58 | Outpatient (AMB) | payer MEDICARE, SELFPAY ==
--- NOTE | 2023-09-09 11:05 | A.OFFVIS_ITS ---
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 Patient reports ongoing pain for a month and a half with no treatment. He has tried Tylenol which gives him minimal relief. He reports mild weakness when lifting his right hand above shoulder height. He does do quite a bit of lifting caring for his son. Allergies No Known Allergies Allergy (Verified 09/09/23 11:10) Medication List - Last Reconciled 09/09/23 by Alexandru Wise MD hydrochlorothiazide 12.5 mg PO DAILY [facility] Medical History (Updated 09/05/23 @ 13:07 by Alexandru Wise MD) Essential hypertension Surgical History History of cardiac catheterization Family History Mother No problems noted. Father Cirrhosis Social History Alcohol intake: never Patient Tobacco Use Status: Never used Tobacco Physical Exam Const Other: Well-nourished well-developed very friendly male awake alert and oriented x3 in no acute distress Extrem Other: Bilateral upper extremity examination shows good capillary refill, no skin lesions noted, normal sensation light touch Right shoulder examination shows decreased range of motion when compared to his left shoulder, 4+ out of 5 strength with supraspinatus testing, positive impingement signs, tenderness over his acromioclavicular joint, no instability Office Procedures Joint Injection/Drain Joint Injection/Drain Primary Site: right shoulder Prep: site was prepped using aseptic technique Injected: 40 mg of, DepoMedrol and 1% plain lidocaine Procedure: The patient tolerated the procedure well Coding 01289 - Large joint Procedure code (CPT) selection complete Results Reviewed Results Reviewed: X-rays of the patient's right shoulder show severe acromioclavicular joint narrowing, a type 3 acromion, no acute bony abnormalities Assessment & Plan Assessment & Plan (1) Right shoulder pain: Code(s): M25.511 - Pain in right shoulder Plan Mr. Antonio Herrmann presents with right shoulder pain due to impingement syndrome and rotator cuff tendinosis versus possible rotator cuff tearing. I had a lengt hy discussion with the patient regarding the treatment options. He wishes to hold off on surgery if at all possible. I agree with this plan. The risks and benefits of a cortisone injection were discussed at length with the patient. The patient wished to proceed. He tolerated the injection well. He will continue with his range of motion exercises to prevent stiffness. He will follow up with me on an as-needed basis should his symptoms not plateau at an unacceptable level over the next few months. Feel free to call me at any time should questions regarding his orthopedic management arise. Thank you very much for asking me to see this very friendly gentleman. I spent 22 minutes in reviewing the patient's records and imaging studies, seeing the patient and documenting in the medical record. Orders: Orders AMB Joint Injection/Aspiration Today M25.511 - Pain in right shoulder XR shoulder RT min 2V Today M25.511 - Pain in right shoulder Coding Level of Care Code New Pt Level 2 (24305) Diagnoses Right shoulder pain M25.511 CPT Codes Coding - 71157 Large joint: 64930 - Large joint ([id number])
== END 2023-09-09 11:47 | disposition home or self-care (01) ==
PROVIDERS: PCP Internal Medicine; Visit Provider Orthopaedic Surgery
DX: M25.511 Pain in right shoulder (principal)
CPT/HCPCS: 20610; 99203

== ENCOUNTER 2023-11-01 09:10 | Outpatient (REF) | payer MEDICARE, SELFPAY ==
[2023-11-01 10:56] LABS: MANUAL DIFF FLAG NO
[2023-11-01 10:59] LABS: Basophils Absolute Auto 0.1 X10*3/uL (0.0-0.2); Basophils Percent Auto 0.7 % (0-2); Eosinophils Absolute Auto 0.7 X10*3/uL (0.0-0.4); Eosinophils Percent Auto 8.5 % (0-4); Hematocrit 41.8 % (42.0-52.0); Hemoglobin 14.2 g/dl (14.0-18.0); Imm Gran Abs Auto 0.02 X10*3/uL (0.00-0.03); Imm Gran Pct Auto 0.2 % (0.0-0.4); Lymphocytes Absolute Auto 3.1 X10*3/uL (1.2-4.9); Lymphocytes Percent Auto 37.1 % (20-40); Mean Corpuscular Hemoglobin 30.3 pg (27.0-33.0); Mean Corpuscular Volume 89.1 fL (80.0-98.0); Mean Platelet Volume 11.1 fL (9.4-12.4); Monocytes Absolute Auto 0.6 X10*3/uL (0.1-1.2); Monocytes Percent Auto 7.7 % (2-11); Neutrophils Absolute Auto 3.8 x10*3/uL (2.0-8.3); Neutrophils Percent Auto 45.8 % (45-73); Platelet Count 223 X10*3/uL (160-400); Red Blood Count 4.69 X10*6/uL (4.60-5.80); Red Cell Distribution Width 12.3 % (11.0-16.0); White Blood Count 8.3 X10*3/uL (4.8-10.8)
[2023-11-01 11:44] LABS: Alanine Aminotransferase 24 U/L (0-40); Albumin Level 3.7 g/dL (3.5-5.0); Alkaline Phosphatase 57 U/L (39-117); Anion Gap 12 (12-20); Aspartate Amino Transferase 31 U/L (5-37); Bilirubin Total 0.7 mg/dL (0.0-1.0); Blood Urea Nitrogen 13 mg/dL (9-16); Calcium 8.8 mg/dL (8.4-10.2); Carbon Dioxide 27 mmol/L (22-29); Chloride 105 mmol/L (96-108); Cholesterol 129 mg/dL (<200); Estimated Glomerular Filt Rate > 60; Glucose Random 104 mg/dL (60-115); HDL Cholesterol 43 mg/dL (>40); LDL Cholesterol Calculated 77 mg/dL (<100); Potassium 4.1 mmol/L (3.3-5.1); Sodium 140 mmol/L (135-145); Total Protein 6.8 g/dL (6.5-8.0); Triglycerides 49 mg/dL (<150)
== END 2023-11-01 09:11 | disposition home or self-care (01) ==
LOC: HO.10HDL 09:10
PROVIDERS: Visit Provider Internal Medicine
DX: E78.00 Pure hypercholesterolemia, unspecified (principal); I10 Essential (primary) hypertension; I35.0 Nonrheumatic aortic (valve) stenosis; R06.02 Shortness of breath
CPT/HCPCS: 36415; 80053; 80061; 85025

== ENCOUNTER 2023-12-12 10:11 | Outpatient (AMB) | payer MEDICARE, SELFPAY ==
[2023-12-12 10:31] VITALS: BMI 25.4
--- NOTE | 2023-12-12 10:31 | MHC.OFFVIS ---
Intake Vital Signs 12/12/23 10:31 Height 5 ft 8 in Weight 167 lb BMI 25.4 Intake Visit Reasons: OV- impingement of right shoulder Intake Note: Ethan is a 73 year old male who presents with Right shoulder pain. The patient describes his pain as sharp in nature. He has had cortisone injections in the past which gave him temporary relief. He would like to hold off on surgery if at all possible. He has tried Tylenol and anti-inflammatory medicines which gave him minimal relief. Allergies No Known Allergies Allergy (Verified 12/12/23 10:55) [facility] Medical History (Updated 09/05/23 @ 13:07 by Alexandru Wise MD) Essential hypertension Surgical History History of cardiac catheterization Family History Mother No problems noted. 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 Physical Exam Vital Signs: BMI result Body Mass Index 25.4 Const Other: Well-nourished well-developed very friendly male awake alert and oriented x3 in no acute distress Extrem Other: Bilateral upper extremity examination shows good capillary refill, no skin lesions noted, normal sensation light touch Right shoulder examination shows slightly decreased range of motion when compared to his left shoulder, positive impingement signs, 4+ out of 5 strength with supraspinatus testing, no instability Office Procedures Joint Injection/Drain Joint Injection/Drain Primary Site: right shoulder Prep: site was prepped using aseptic technique Injected: 40 mg of, DepoMedrol and 1% plain lidocaine Procedure: The patient tolerated the procedure well Coding 91903 - Large joint Procedure code (CPT) selection complete Assessment & Plan Assessment & Plan (1) Right shoulder pain: Code(s): M25.511 - Pain in right shoulder Plan Mr. Antonio Herrmann presents with right shoulder pain due to impingement syndrome. I had a lengthy discussion with the patient regarding the treatment options. He wishes to hold off on surgery for as long as possible. I agree with this plan. The risks and benefits of a right shoulder cortisone injection were discussed at length with the patient. The patient wished to proceed with the injection. He tolerated the injection well. He will continue with his home exercise program. He will follow up with me on an as-needed basis should his symptoms not plateau at an unacceptable level over the next few months. Feel free to call me at any time should questions regarding his orthopedic management arise. I spent 22 minutes in reviewing the patient's records and imaging studies, seeing the patient and documenting in the medical record. Orders: Orders AMB Joint Injection/Aspiration 12/12/23 M25.511 - Pain in right shoulder Coding Level of Care Code Est Pt Level 2 (36407) Diagnoses Right shoulder pain M25.511 CPT Codes Coding - 92340 Large joint: 41502 - Large joint ([id number])
== END 2023-12-12 11:10 | disposition home or self-care (01) ==
PROVIDERS: PCP Internal Medicine; Visit Provider Orthopaedic Surgery
DX: M25.511 Pain in right shoulder (principal)
CPT/HCPCS: 20610; 99213

== ENCOUNTER → 2023-12-12 10:11 | Outpatient (BNVA) | payer MEDICARE, SELFPAY | PROVIDERS: PCP Internal Medicine; Visit Provider Orthopaedic Surgery | DX: M25.811 Other specified joint disorders, right shoulder (principal); M25.511 Pain in right shoulder | CPT/HCPCS: 20610; 99212; J1020 ==

== ENCOUNTER → 2024-02-11 08:18 | Outpatient (REF) | payer MEDICARE, SELFPAY ==
--- NOTE | 2024-02-11 08:20 | CA_ITS ---
Transthoracic Echocardiogram Patient (Last, First, Middle): Ethan Garcia, Gender: Male Date of : 1950 Age: 73 Procedure Date: 02/11/2024 Procedure Type: Transthoracic Echocardiogram Location: OP Height: 172.72 cm Weight: 74.84 kg BSA: 1.88 m2 Heart Rate: bpm BP: 116 / 64 mmHg Fish Egg Packer: JENNI Referring MD: Kahlil Reyes MD Symptoms: I35.0 - Nonrheumatic aortic (valve) stenosis Study Quality: Adequate ECG Rhythm: Sinus Conclusions: - The left ventricular systolic function is normal. The calculated ejection fraction is 63% by biplane method. - Paradoxical, low-flow, low gradient severe aortic stenosis. Findings Left Ventricle Normal left ventricular cavity size. The left ventricular systolic function is normal. The calculated ejection fraction is 63% by biplane method. There is no evidence of regional wall motion abnormalities. Diastolic function is normal for age. There is mild septal asymmetric hypertrophy. LV peak GLS 17.8%. Right Ventricle Mildly increased right ventricular cavity size. There is normal right ventricular systolic function. Atria The left atrium is normal in size. The right atrium is moderately dilated. Aortic Valve There is severe calcification of the aortic valve. The peak aortic velocity is 3.87 m/s with a calculated peak gradient of 60 mmHg. The mean gradient is 32 mmHg. The aortic valve area is 0.66 cm2. There is no aortic valve regurgitation. Dimensionless index 0.2. Stroke volume index 38ml/m2. Paradoxical, low-flow, low gradient severe aortic stenosis. Mitral Valve The mitral valve appears normal. There is mild mitral annular calcification. There is no mitral valve regurgitation. There is no mitral valve stenosis. Pulmonic Valve The pulmonic valve is likely normal. Tricuspid Valve Normal tricuspid valve structure. There is mild tricuspid valve regurgitation. There is no evidence of pulmonary hypertension. Great Vessels The asc aorta is normal in size. Venous The inferior vena cava is normal in size and collapses greater than 50% with inspiration. Pericardium/Pleural There is no evidence of pericardial effusion. Prior Study Comparison No significant change compared to prior study dated: 03/05/2023. Measurements 2D Linear Measurements IVSd: 1.12 0.6-0.9/0.6-1.0 cm LVIDd: 4.76 3.9-5.3/4.2-5.9 cm LVIDd Index: 2.53 2.4-3.2/2.2-3.1 cm/m2 LVIDs: 3.23 2.0-3.6 cm LVPWd: 1.00 0.7-1.1 cm LA Diam: 3.40 2.7-3.8/3.0-4.0 cm LAIDs Index: 1.81 1.5-2.3 cm/m2 LV Mass: 226.52 67-162/88-224 g LV Mass Index: 120.49 43-95/49-115 g/m2 LVOT Diam: 2.10 3.0+(-)1.3 cm 2D Systolic Function EF 4C: 66.50 >55% EF 2C: 55.80 >55% EF BiP: 62.80 >55% Mitral Valve MV Pk E: 0.90 MV PK A: 0.84 MV Decel Time: 202.00 E/A: 1.10 E'Lateral: 7.72 E'Medial: 5.77 E/E' Med: 15.50 E/E' Lat: 11.60 PHT: 59.00 MVA PHT: 3.73 Decel [place]: 4.43 Aortic Valve AoV Pk Loki: 3.87 AoV Mn Loki: 2.63 AoV VTI: 1.08 AoV Pk Grad: 60.00 Aov Mn Grad: 32.00 KAYLYNN Cont.VTI: 0.66 LVOT LVOT Pk Loki: 0.76 LVOT Mn Loki: 0.52 LVOT VTI: 0.21 LVOT Pk Grad: 2.00 LVOT Mn Grad: 1.00 LVOT Diam: 2.10 LVOT Area: 3.46 Diastolic Function MV Pk E: 0.90 MV Pk A: 0.84 E/A: 1.10 E'Medial: 5.77 E/E' Med: 15.50 E' Laterial: 7.72 E/E' Lat: 11.60 Right Ventricle TAPSE (mm): 28.60 TVS' Loki: 10.80 Tricuspid Valve TR Pk Loki: 2.33 TR Pk Grad: 22.00 RA Press: 3.00 RVSP: 25.00 Great Vessels Aorta Sinus of Valsalva: 3.53 2.0-3.[address] [place]: 2.75 1.7-3.4 cm Ao Asc: 3.30 2.1-3.4 cm Updated in Other Vendor System with Status of Final Kahlil Reyes MD electronically signed on 02/11/2024 10:48:41 AM with status of Final
== END ==
LOC: HO.CARD 08:18
PROVIDERS: PCP Internal Medicine; Visit Provider Internal Medicine
DX: I35.0 Nonrheumatic aortic (valve) stenosis (principal)
CPT/HCPCS: 93306; 93356

== ENCOUNTER → 2024-02-11 08:20 | Outpatient (BNV) | payer MEDICARE, SELFPAY | PROVIDERS: PCP Internal Medicine; Visit Provider Internal Medicine | DX: I35.0 Nonrheumatic aortic (valve) stenosis (principal); I35.8 Other nonrheumatic aortic valve disorders; I36.1 Nonrheumatic tricuspid (valve) insufficiency; I42.2 Other hypertrophic cardiomyopathy | CPT/HCPCS: 93306; 93356 ==

== ENCOUNTER 2024-03-12 10:04 | Outpatient (AMB) | payer MEDICARE, SELFPAY ==
--- NOTE | 2024-03-12 10:23 | A.OFFVIS_ITS ---
Intake Visit Reasons: Right shoulder pain Intake Note: Ethan is a 73 year old male who presents with complaints of right shoulder pain. He denies any weakness in his shoulder. His pain has gotten somewhat worse over the last few months. He has had cortisone injections in the past which gave him fairly good relief. He has also tried Tylenol and naproxen which gave him mild relief. He wishes to hold off on surgery for as long as possible. Sales Advisory Manager Required: Yes Sales Advisory Manager Language: Sales And Service Specialist Name: [id number] Allergies No Known Allergies Allergy (Verified 03/12/24 10:28) Medication List - Last Reconciled 03/13/24 by Alexandru Wise MD cetirizine 10 mg PO DAILY fluticasone propionate 50 mcg/actuation intranasal metoprolol tartrate 50 mg PO BID naproxen 500 mg PO BID [facility] Medical History Nonrheumatic aortic (valve) stenosis Essential hypertension Surgical History History of cardiac catheterization Family History Mother No problems noted. 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 Physical Exam Const Other: Well-nourished well-developed very friendly male awake alert and oriented x3 in no acute distress Extrem Other: Bilateral upper extremity examination shows good capillary refill, no skin lesions noted, normal sensation light touch Right shoulder examination shows full range of motion when compared to his left shoulder, 5/5 strength with supraspinatus testing, positive impingement signs, no instability Office Procedures Joint Injection/Drain Joint Injection/Drain Primary Site: right shoulder Prep: site was prepped using aseptic technique Injected: 40 mg of, DepoMedrol and 1% plain lidocaine Procedure: The patient tolerated the procedure well Coding 18542 - Large joint Procedure code (CPT) selection complete Assessment & Plan Assessment & Plan (1) Right shoulder pain: Code(s): M25.511 - Pain in right shoulder Category: Medical Plan Mr. Antonio Herrmann presents with right shoulder pain due to impingement syndrome. I had a lengthy discussion with the patient regarding the treatment options. He wishes to hold off on surgery for as long as possible. I agree with this plan. The risks and benefits of a right shoulder cortisone injection were discussed at length with the patient. The patient wished to proceed with the injection. He tolerated the injection well. The do's and don'ts of lifting were discussed at length with the patient. He will follow up with me on an as-needed basis should his symptoms not plateau at an unacceptable level over the next few months. Feel free to call me at any time should questions regarding his orthopedic management arise. I spent 22 minutes in reviewing the patient's records and imaging studies, seeing the patient and documenting in the medical record. Orders: Orders AMB Joint Injection/Aspiration 03/12/24 M25.511 - Pain in right shoulder Coding Level of Care Code Est Pt Level 3 (62565) Diagnoses Right shoulder pain M25.511 CPT Codes Coding - 80395 Large joint: 56124 - Large joint ([id number])
== END 2024-03-12 10:58 | disposition home or self-care (01) ==
PROVIDERS: PCP Internal Medicine; Visit Provider Orthopaedic Surgery
DX: M25.511 Pain in right shoulder (principal)
CPT/HCPCS: 20610; 99213

== ENCOUNTER → 2024-03-12 10:04 | Outpatient (BNVA) | payer MEDICARE, SELFPAY | PROVIDERS: PCP Internal Medicine; Visit Provider Orthopaedic Surgery | DX: M25.511 Pain in right shoulder (principal) | CPT/HCPCS: 20610; 99212; J1010 ==

== ENCOUNTER 2024-04-28 10:13 | Outpatient (AMB) | payer MEDICARE, SELFPAY ==
--- NOTE | 2024-04-28 10:35 | MHC.OFFVIS ---
Vital Signs 04/28/24 10:38 Height 5 ft 8 in Weight 160 lb 7.944 oz BMI 24.4 BP 138/76 Blood Pressure Location Lt brachial Position Sitting Pulse 55 Intake Visit Reasons: F/up after echo Cad Manager Required: Yes Cad Manager Services: Cad Manager Present Cad Manager Name: Horacio [id number]/Obi/[place] Accompanied by: Self / Same As Patient Allergies No Known Allergies Allergy (Verified 03/12/24 10:28) Medication List - Last Reconciled 04/28/24 by Kahlil Reyes MD cetirizine 10 mg PO DAILY fluticasone propionate 50 mcg/actuation intranasal metoprolol tartrate 50 mg PO BID naproxen 500 mg PO BID HPI Comments Details: Ethan returns for follow-up. In the past, was seen regarding chest pain which seems somewhat vague. He underwent a comprehensive workup including echocardiogram that showed paradoxical low-flow, low gradient severe aortic stenosis. Subsequently, underwent cardiac catheterization but no significant CAD. As symptoms were somewhat inconclusive, he underwent ETT and he did actually quite well in that. Overall, no new concerns. 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 When he climbs up stairs, sometimes he feels tired but otherwise nothing else of concern. He states that he can essentially do anything he wants to do. [facility] Medical History (Updated 04/28/24 @ 10:52 by Kahlil Reyes MD) Nonrheumatic aortic (valve) stenosis Essential hypertension Surgical History History of cardiac catheterization Family History Mother No problems noted. 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 Review of Systems Const Denies chills, Denies fatigue, Denies fever(s), Denies weight gain and Denies weight loss ENT Denies dizziness Card Denies chest pain, Denies leg edema, Denies lightheadedness, Denies palpitations, Denies dyspnea on exertion, Denies orthopnea and Denies other Resp Denies cough and Denies dyspnea on exertion GI Denies hematochezia and Denies change in stool character Musc Denies abnormal gait, Denies muscle weakness, Denies numbness, Denies radiating pain into limb and Denies tingling Neuro Denies abnormal gait, Denies dizziness, Denies numbness and Denies tingling Endo Denies fatigue and Denies palpitations Physical Exam Vital Signs: Last Vital Signs Pulse 55 04/28/24 10:38 BP 138/76 04/28/24 10:38 BMI result Body Mass Index 24.4 Const General: comfortable and no acute distress Orientation/consciousness: patient oriented x3 HEENT Other: Unremarkable Head: Yes normal to inspection Neck Neck: Yes normal visual inspection Chest Chest palpation & inspection: normal inspection of the chest Resp Auscultation: clear to auscultation bilaterally Cardio Palpation: normal PMI Heart sounds: S1 normal heart sound present, S2 abnormal (soft), no gallops, Murmur heart sound present systolic III/ and at the right sternal border and no rubs GI Palpation (GI): Soft to palpation Back/Spine/Pelvis Other: unremarkable Skin General skin exam: no rashes or lesions noted Neuro General: patient oriented x3 Extrem General: Yes normal to inspection Psych Mental Status: mental status grossly normal Office Procedures EKG Details: EKG with underlying sinus bradycardia at 55/Min; can not exclude old inferior infarct. Could also be from LVH/strain type pattern. [id number], Complete Assessment & Plan Assessment & Plan (1) Nonrheumatic aortic (valve) stenosis: Code(s): I35.0 - Nonrheumatic aortic (valve) stenosis Category: Medical Plan Cardiac studies reviewed. In the most recent echocardiogram, mean gradient across aortic valve was 32 mm Hg with a peak of 60 mm Hg. Calculated valve area of 0.66 cm2. Dimensionless index 0.2. Thought to be paradoxical low-flow, low gradient severe aortic stenosis. Stroke volume index was 38 mL/m2. LVEF 63%. Preserved peak global longitudinal strain at -17.8%. In the previous echocardiogram, mean gradient across aortic valve was 25 mm Hg. Peak 51 mm Hg. Calculated valve area of 0.7 sq cm. Dimensionless index 0.18. LVEF preserved at 55-60%. In the cardiac catheterization, minimal irregularities in the LAD and RCA but otherwise normal coronary arteries. Mean gradient was 38 mm Hg and aortic valve area of 0.8 sq cm and it was felt that he had severe aortic stenosis. Due to lack of clear symptoms, he underwent ETT. He exercised for 10.9 Mets on Junito protocol; exercise duration of 9 minutes and 30 seconds. Normal blood pressure response to exercise and hypertensive response in the recovery phase. No concerning symptoms. Overall, he has severe aortic stenosis but he does not have any symptoms whatsoever and with excellent exercise capacity. Cardinal symptoms of aortic stenosis discussed and explained to him in [place]. Advised him to contact us immediately in that case. He agrees. Eventually, he will be a TAVR candidate, actual timing to be decided as he is truly asymptomatic at this time. Will follow closely. Total time spent including review of data, counseling, documentation, coordination of care-32 minutes. Orders: Orders CA echo transthoracic complete Today I35.0 - Nonrheumatic aortic (valve) stenosis Coding Level of Care Code Est Pt Level 4 (64811) Diagnoses Nonrheumatic aortic (valve) stenosis I35.0 CPT Codes EKG - CPT: 26842-[id number], Complete ([id number])
[2024-04-28 10:38] VITALS: BP 138/76; PULSE 55; BMI 24.4
== END 2024-04-28 10:57 | disposition home or self-care (01) ==
PROVIDERS: PCP Internal Medicine; Visit Provider Internal Medicine
DX: I35.0 Nonrheumatic aortic (valve) stenosis (principal)
CPT/HCPCS: 93010; 99214

== ENCOUNTER → 2024-04-28 10:13 | Outpatient (BNVA) | payer MEDICARE, SELFPAY | PROVIDERS: PCP Internal Medicine; Visit Provider Internal Medicine | DX: I35.0 Nonrheumatic aortic (valve) stenosis (principal) | CPT/HCPCS: 93005; 99212 ==

== ENCOUNTER 2024-06-30 08:13 | Outpatient (AMB) | payer MEDICARE, SELFPAY ==
--- NOTE | 2024-06-30 08:14 | MHC.OFFVIS ---
Vital Signs 06/30/24 08:21 Height 5 ft 8 in Weight 160 lb BMI 24.3 Intake Visit Reasons: OV-impingement of right shoulder-follow up Intake Note: Ethan is a 74 year old male who presents with complaints of right shoulder pain. The patient describes his pain as sharp in nature. He denies any weakness. He has had cortisone injections in the past which gave him fairly good relief. He has also tried naproxen and Tylenol which gave him only mild relief. He wishes to hold off on surgery if at all possible. that presents today for a follow up for an impingement of right shoulder. Patient would like to receive an injection today in his right shoulder Allergies No Known Allergies Allergy (Verified 03/12/24 10:28) Medication List - Last Reconciled 06/30/24 by Alexandru Wise MD cetirizine 10 mg PO DAILY fluticasone propionate 50 mcg/actuation intranasal metoprolol tartrate 50 mg PO BID naproxen 500 mg PO BID [facility] Medical History (Updated 06/30/24 @ 08:44 by Alexandru Wise MD) Nonrheumatic aortic (valve) stenosis Essential hypertension Surgical History History of cardiac catheterization Family History Mother No problems noted. 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 Physical Exam Vital Signs: BMI result Body Mass Index 24.3 Const Other: Well-nourished well-developed very friendly male awake alert and oriented x3 in no acute distress Extrem Other: Bilateral upper extremity examination shows good capillary refill, no skin lesions noted, normal sensation light touch Right shoulder examination shows full range of motion when compared to his left shoulder, 4+ out of 5 strength with supraspinatus testing, positive impingement signs, no instability Office Procedures Joint Injection/Aspiration Joint Injection/Aspiration Primary Site: right shoulder Prep: site was prepped using aseptic technique Injected: 40 mg of, DepoMedrol and 1% plain lidocaine Procedure: The patient tolerated the procedure well Coding - Large joint Procedure code (CPT) selection complete Assessment & Plan Assessment & Plan (1) Impingement of right shoulder: Code(s): M25.811 - Other specified joint disorders, right shoulder Category: Medical Plan Mr. Antonio Herrmann presents with right shoulder pain due to impingement syndrome. I had a lengthy discussion with the patient regarding the treatment options. The risks and benefits of a right shoulder cortisone injection were discussed at length with the patient. The patient wished to proceed. He tolerated the injection well. He will continue with his [id number] exercises to prevent stiffness. He will follow up with me on an as-needed basis should his symptoms not plateau at an unacceptable level over the next few months. Feel free to call me at any time should questions regarding his orthopedic management arise. I spent 20 minutes in reviewing the patient's records and imaging studies, seeing the patient and documenting in the medical record. Orders: Orders AMB Joint Injection/Aspiration Today M25.811 - Other specified joint disorders, right shoulder Coding Level of Care Code Est Pt Level 3 (32303) Complex EM visit Add On G2211 Diagnoses Impingement of right shoulder M25.811 CPT Codes Coding - Large joint: 58116 - Large joint ([id number])
[2024-06-30 08:21] VITALS: BMI 24.3
== END 2024-06-30 08:45 | disposition home or self-care (01) ==
PROVIDERS: PCP Internal Medicine; Visit Provider Orthopaedic Surgery
DX: M25.811 Other specified joint disorders, right shoulder (principal)
CPT/HCPCS: 20610; 99213

== ENCOUNTER → 2024-06-30 08:13 | Outpatient (BNVA) | payer MEDICARE, SELFPAY | PROVIDERS: PCP Internal Medicine; Visit Provider Orthopaedic Surgery | DX: M25.811 Other specified joint disorders, right shoulder (principal) | CPT/HCPCS: 20610; 99212; J1010; J2003 ==

== ENCOUNTER → 2024-08-04 10:33 | Outpatient (REF) | payer MEDICARE, SELFPAY ==
--- NOTE | 2024-08-04 10:36 | CA_ITS ---
Transthoracic Echocardiogram Patient (Last, First, Middle): Ethan Garcia, Gender: Male Date of : 1950 Age: 74 Procedure Date: 08/04/2024 Procedure Type: Transthoracic Echocardiogram Location: OP Height: 172.72 cm Weight: 74.84 kg BSA: 1.88 m2 Heart Rate: bpm BP: 134 / 80 mmHg Cia Agent: Referring MD: Kahlil Reyes MD Symptoms: I35.0 - Nonrheumatic aortic (valve) stenosis Study Quality: Adequate ECG Rhythm: Sinus Conclusions: - The left ventricular systolic function is normal. The calculated ejection fraction is 58% by biplane method. - Paradoxical, low-flow, low gradient, severe aortic stenosis. Findings Left Ventricle Normal left ventricular cavity size. There is moderately increased left ventricular wall thickness. The left ventricular systolic function is normal. The calculated ejection fraction is 58% by biplane method. There is no evidence of regional wall motion abnormalities. Evidence suggests grade I (mild) diastolic dysfunction. Right Ventricle Mildly increased right ventricular cavity size. There is normal right ventricular systolic function. Atria Both atria are normal in size. Aortic Valve There is severe calcification of the aortic valve. The peak aortic velocity is 3.36 m/s with a calculated peak gradient of 45 mmHg. The mean gradient is 28 mmHg. The aortic valve area is 0.60 cm2. There is no aortic valve regurgitation. Dimensionless index 0.19. Stroke volume index 28 mL/m2. Paradoxical, low-flow, low gradient, severe aortic stenosis. Mitral Valve The mitral valve appears normal. There is moderate mitral annular calcification. There is no mitral valve stenosis. Pulmonic Valve The pulmonic valve is likely normal. There is trace pulmonic valve regurgitation. Tricuspid Valve There is mild tricuspid valve regurgitation. There is no evidence of pulmonary hypertension. Great Vessels The asc aorta is normal in size. Venous The inferior vena cava is normal in size and collapses greater than 50% with inspiration. Pericardium/Pleural There is no evidence of pericardial effusion. Prior Study Comparison Changes noted compared to prior study dated: 02/03/2024. Gradients are lower, which could indicate underestimation. Measurements 2D Linear Measurements IVSd: 1.36 0.6-0.9/0.6-1.0 cm LVIDd: 4.31 3.9-5.3/4.2-5.9 cm LVIDd Index: 2.29 2.4-3.2/2.2-3.1 cm/m2 LVIDs: 2.95 2.0-3.6 cm LVPWd: 1.25 0.7-1.1 cm Ao Root: 3.30 2.1-3.5 cm LA Diam: 3.30 2.7-3.8/3.0-4.0 cm LAIDs Index: 1.76 1.5-2.3 cm/m2 LV Mass: 261.36 67-162/88-224 g LV Mass Index: 139.02 43-95/49-115 g/m2 LVOT Diam: 2.00 3.0+(-)1.3 cm 2D Systolic Function EF 4C: 55.00 >55% EF 2C: 60.80 >55% EF BiP: 57.70 >55% Mitral Valve MV Pk E: 0.79 MV PK A: 0.72 MV Decel Time: 202.00 E/A: 1.10 E'Lateral: 6.85 E'Medial: 5.00 E/E' Med: 15.80 E/E' Lat: 11.50 PHT: 59.00 MVA PHT: 3.73 Decel Alger: 3.91 Aortic Valve AoV Pk Loki: 3.36 AoV Mn Loki: 2.45 AoV VTI: 0.90 AoV Pk Grad: 45.00 Aov Mn Grad: 28.00 KAYLYNN Cont.VTI: 0.60 LVOT LVOT Pk Loki: 0.63 LVOT Mn Loki: 0.46 LVOT VTI: 0.17 LVOT Pk Grad: 2.00 LVOT Mn Grad: 1.00 LVOT Diam: 2.00 LVOT Area: 3.14 Diastolic Function MV Pk E: 0.79 MV Pk A: 0.72 E/A: 1.10 E'Medial: 5.00 E/E' Med: 15.80 E' Laterial: 6.85 E/E' Lat: 11.50 Right Ventricle TAPSE (mm): 23.00 Tricuspid Valve TR Pk Loki: 2.20 TR Pk Grad: 19.00 RA Press: 3.00 RVSP: 22.00 Great Vessels Aorta Ao Root-2D: 3.30 2.0-3.7 cm Ao Asc: 3.20 2.1-3.4 cm Pulmonary Valve PV Pk Loki: 0.72 Peak PV Grad: 2.00 Updated in Other Vendor System with Status of Final Kahlil Reyes MD electronically signed on 08/05/2024 12:18:35 PM with status of Final
== END ==
LOC: HO.CARD 10:33
PROVIDERS: PCP Internal Medicine; Visit Provider Internal Medicine
DX: I35.0 Nonrheumatic aortic (valve) stenosis (principal)
CPT/HCPCS: 93306

== ENCOUNTER → 2024-08-04 10:36 | Outpatient (BNV) | payer MEDICARE, SELFPAY | PROVIDERS: PCP Internal Medicine; Visit Provider Internal Medicine | DX: I35.0 Nonrheumatic aortic (valve) stenosis (principal); I36.1 Nonrheumatic tricuspid (valve) insufficiency; I35.8 Other nonrheumatic aortic valve disorders; I34.81 Nonrheumatic mitral (valve) annulus calcification | CPT/HCPCS: 93306 ==

== ENCOUNTER 2024-08-31 14:02 | Outpatient (AMB) | payer MEDICARE, SELFPAY ==
[2024-08-31 14:27] VITALS: BP 140/72; PULSE 85; BMI 23.9
--- NOTE | 2024-08-31 14:27 | A.OFFVIS_ITS ---
Vital Signs 08/31/24 14:27 Height 5 ft 8 in Weight 156 lb 15.506 oz BMI 23.9 BP 140/72 H Blood Pressure Location Lt brachial Position Sitting Pulse 85 Pulse Source Pulse Oximeter Intake Visit Reasons: Hosp F/U Deckhand Oyster Dredge Required: Yes Deckhand Oyster Dredge Name: voice cole [id number] Allergies No Known Allergies Allergy (Verified 08/31/24 14:30) Medication List - Last Reconciled 08/31/24 by MAGED Lazar cetirizine 10 mg PO DAILY fluticasone propionate 50 mcg/actuation intranasal metoprolol tartrate 50 mg PO BID naproxen 500 mg PO BID HPI HPI Hosp F/U: Details: Ethan is a 74-year-old male past medical history of hypertension, severe low- flow, low gradient aortic stenosis who was recently admitted to [facility] after a syncopal event at home which resulted in an injury to his neck that required surgery. While at [facility] he underwent pre TAVR testing. He now presents for follow-up. Today he reports that he has not had any recurrent syncope or falls since his hospital discharge. He states that on the night of his syncope he got up to use the bathroom. While sitting on the toilet he became dizzy and then lost consc iousness. His was present and EMS was called. He was transported to the hospital where he did have a neck injury that resulted in cervical cord compression. He underwent neurosurgery. His only complaint since that time is of neck pain. He denies any lightheadedness, palpitations, presyncope, recurrent syncope. No chest discomfort at rest or with activity. No shortness of breath, PND, orthopnea or edema. He has been doing only light activities. He tells me he is going on a cruise 09/05- 09/13/24 with family members. Certified head girls golf coach used. [facility] Medical History Nonrheumatic aortic (valve) stenosis Essential hypertension Surgical History History of cardiac catheterization Family History Mother No problems noted. 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 Review of Systems Const All systems reviewed & are unremarkable except as noted in HPI and below ENT Details: neck discomfort from recent fall with surgery Denies dizziness Card Denies chest pain, Denies chest pain at rest, Denies chest pain with activity, Denies rapid heart rate, Denies pedal edema, Denies edema, Denies leg edema, Denies lightheadedness, Denies palpitations, Denies dyspnea, Denies dyspnea on exertion and Denies orthopnea Resp Denies cough, Denies dyspnea and Denies dyspnea on exertion GI Denies hematochezia and Denies change in stool character Musc Denies abnormal gait, Denies limited range of motion, Denies muscle cramps, Denies muscle weakness, Denies numbness, Denies radiating pain into limb, Denies stiffness and Denies tingling Neuro Denies abnormal gait, Denies dizziness, Denies numbness and Denies tingling Endo Denies palpitations Physical Exam Vital Signs: Last Vital Signs Pulse 85 08/31/24 14:27 BP 140/72 H 08/31/24 14:27 BMI result Body Mass Index 23.9 Const General: cooperative, healthy appearing, comfortable and no acute distress Orientation/consciousness: patient oriented x3 Neck Other: surgical incision scar well approximated Resp Effort & Inspection: normal respiratory effort Auscultation: clear to auscultation bilaterally, no rales, no rhonchi and no wheezes Cardio Rate: regular rate Rhythm: regular rhythm Heart sounds: S2 normal heart sound present and no rubs Peripheral pulses: Peripheral pulses 2+ throughout Neuro General: patient oriented x3 Extrem General: Yes normal to inspection, No no pedal edema and No calf tenderness Psych Appearance: grossly normal Mental Status: mental status grossly normal Speech and movement: Normal speech and movement present Assessment & Plan Assessment & Plan (1) Nonrheumatic aortic (valve) stenosis: Code(s): I35.0 - Nonrheumatic aortic (valve) stenosis Category: Medical Plan: History of aortic stenosis. Known to have severe low-flow low gradient however he has been asymptomatic until recently. He did have an exercise stress test 07/09/2023 with good exercise tolerance, asymptomatic. Echocardiogram done at [facility] [id number] shows EF 58%, low flow, low gradient severe aortic stenosis with mean gradient 28 mmHg, aortic valve area 0.6 centimeter sq. -gradients were lower than prior echo which could be under estimated. His echocardiogram from 02/11/2024 had shown aortic valve mean gradient 32 mmHg and aortic valve area 0.66 centimeter sq. On 08/09/2024 he had a syncopal event at home. He did require [facility] admission and surgery for cervical cord compression which occurred during his fall. Today he reports doing well since that time. He does have minor neck discomfort and has only been doing light activities. He denies chest discomfort, shortness of breath, recurrent syncopal events. Informed him that his syncope could be related to his severe aortic stenosis. Described the pathophysiology of this problem to him and easy to understand terms. Informed him that he needs to undergo an aortic valve replacement and will be referred to Dr. Martinez for TAVR procedure. He states understanding. Instructed on only light physical activities. He tells me he is going on a cruise, leaving 09/05/2024. Informed him that he should not be going on a cruise and will need to cancel. Offered to give him a letter stating he has a medical reason to postpone his trip. He declines at this time. Had head girls golf coach clearly explained to him that he is at high risk for complications from his aortic valve including syncope, possible . He tells us he understands this risk. Cardiology follow-up in 2-3 months, sooner if needed. This should be post TAVR. (2) History of cardiac catheterization: Comment: 05/14/2023, left main and LCX normal, lad and RCA each with minimal luminal irregularities Code(s): Z98.890 - Other specified postprocedural states Category: Surgical Plan: Repeat cardiac catheterization not needed prior to TAVR procedure. (3) Syncope: Code(s): R55 - Syncope and collapse Category: Medical Plan: As above (4) Essential hypertension: Code(s): I10 - Essential (primary) hypertension Category: Medical Plan: Initially mildly elevated at this visit. Recheck done by me 124/68. Continue metoprolol. (5) Hospital discharge follow-up: Code(s): Z09 - Encounter for follow-up examination after completed treatment for conditions other than malignant neoplasm Category: Medical Plan: [facility] discharge as above Plan Time spent on chart review, documentation, interview and assessment Orders: Referrals Cardiac Surgery Referral I35.0 - Nonrheumatic aortic (valve) stenosis, R55 - Syncope and collapse Coding Level of Care Code Est Pt Level 4 (36253) Complex EM visit Add On G2211 Diagnoses Nonrheumatic aortic (valve) stenosis I35.0 History of cardiac catheterization Z98.890 Syncope R55 Essential hypertension I10 Hospital discharge follow-up Z09 Time Spent (min) 36
== END 2024-08-31 15:02 | disposition home or self-care (01) ==
PROVIDERS: PCP Internal Medicine; Visit Provider Nurse Practitioner Family
DX: I35.0 Nonrheumatic aortic (valve) stenosis (principal); Z98.890 Other specified postprocedural states; R55 Syncope and collapse; I10 Essential (primary) hypertension; Z09 Encounter for follow-up examination after completed treatment for conditions other than malignant neoplasm
CPT/HCPCS: 99214; G2211

== ENCOUNTER → 2024-08-31 14:02 | Outpatient (BNVA) | payer MEDICARE, SELFPAY | PROVIDERS: PCP Internal Medicine; Visit Provider Nurse Practitioner Family | DX: Z09 Encounter for follow-up examination after completed treatment for conditions other than malignant neoplasm (principal); R55 Syncope and collapse; I10 Essential (primary) hypertension; I35.0 Nonrheumatic aortic (valve) stenosis; M54.2 Cervicalgia; Z98.890 Other specified postprocedural states | CPT/HCPCS: 99212 ==

== ENCOUNTER 2024-10-28 10:46 | Outpatient (AMB) | payer MEDICARE, SELFPAY ==
--- NOTE | 2024-10-28 11:01 | A.OFFVIS_ITS ---
Vital Signs 10/28/24 11:02 Height 5 ft 8 in Weight 156 lb BMI 23.7 Intake Visit Reasons: OV-impingement of right shoulder-3 month F/U Intake Note: Ethan is a 74 year old male who presents with complaints of right shoulder pain. He describes his pain as sharp in nature. He denies any weakness. He has had cortisone injections in the past which gave her fairly good relief. He wishes to hold off on surgery if at all possible. Tunnel Kiln Repairer Required: Yes Tunnel Kiln Repairer Services: Tunnel Kiln Repairer Present Tunnel Kiln Repairer Name: Syed JONELLE/DALIA Allergies No Known Allergies Allergy (Verified 10/28/24 11:06) Medication List - Last Reconciled 10/28/24 by Alexandru Wise MD cetirizine 10 mg PO DAILY fluticasone propionate 50 mcg/actuation intranasal metoprolol tartrate 50 mg PO BID naproxen 500 mg PO BID [facility] Medical History Nonrheumatic aortic (valve) stenosis Essential hypertension Surgical History History of cardiac catheterization Family History Mother No problems noted. 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 Physical Exam Vital Signs: BMI result Body Mass Index 23.7 Const Other: Well-nourished well-developed very friendly male awake alert and oriented x3 in no acute distress Extrem Other: Bilateral upper extremity examination shows good capillary refill, no skin lesions noted, normal sensation light touch Right shoulder examination shows full range motion when compared to his left shoulder, 4+ out of 5 strength with supraspinatus testing, positive impingement signs, no instability Office Procedures AMB Joint Injection/Aspiration Joint Injection/Aspiration Primary Site: right shoulder Prep: site was prepped using aseptic technique Injected: 40 mg of, DepoMedrol and 1% plain lidocaine Procedure: The patient tolerated the procedure well Coding 77962 - Large joint Procedure code (CPT) selection complete Assessment & Plan Assessment & Plan (1) Impingement of right shoulder: Code(s): M25.811 - Other specified joint disorders, right shoulder Category: Medical Plan Ethan presents with right shoulder pain due to impingement syndrome. The risks and benefits of a right shoulder cortisone injection were discussed at length with the patient. The patient wished to proceed. He tolerated the injection well. He will continue with his home exercise program. He will contact me prior to his follow-up appointment in 3 months should any questions or concerns arise. Feel free to call me at any time should questions regarding his orthopedic management arise. I spent 21 minutes in reviewing the patient's records and imaging studies, seeing the patient and documenting in the medical record. Orders: Orders AMB Joint Injection/Aspiration Today M25.811 - Other specified joint disorders, right shoulder Coding Level of Care Code Est Pt Level 3 (70141) Complex EM visit Add On G2211 Diagnoses Impingement of right shoulder M25.811 CPT Codes Coding - 41797 Large joint: 16445 - Large joint ([id number])
[2024-10-28 11:02] VITALS: BMI 23.7
--- OUTSIDE RECORDS SUMMARY | 2024-10-28 11:55 | XMS_ITS | Continuity of Care Document ---
Author Organization [facility] Cardiac Alysia arturo Address [address] [place] [address]- Care Team Providers Care Oyster Grower Name Role Phone Juanito MC, Lucita Johnson Primary Care Physician [facility] [id number] Date(s): 10/05/24 - 10/12/24 [facility] Cardiac Surgery [address] [place] [address] Drive [address] [place] [address]- Attending Physician: Waldemar Browne MD Referring Physician: Juan MC [facility] Encounter Type: Office Visit Allergies, Adverse Reactions, Alerts No Known Allergies Immunizations Given and Recorded Vaccine Date Status Refusal Reason tetanus/diphtheria/pertussis, acel(Tdap) 08/09/24 Given Medications Metoprolol Tartrate 50 mg oral tablet 1 tablet = 50 mg, By Mouth, 2 times a day, # 60 tablet, 0 Refills, Maintenance, 08/09/24 11:14:00 PM EST, Tablet, Partial fill upon patient request if the prescription is for a schedule II opioid drug. Start Date: 08/09/24 Status: Ordered Quantity: 60.0 Unit: tablet Repeat number: 1 Naproxen By Mouth, PRN Pain , Mild, 0 Refills, Maintenance, 09/30/24 1:51:00 PM EST, Partial fill upon patientrequest if the prescription is for a schedule II opioid drug. Start Date: 09/30/24 Status: Ordered Repeat number: 1 Problem List Condition Confirmation Course Effective Dates Status H ealth Status Informant Aortic stenosis Confirmed Active Hyperlipidemia Confirmed Active Hypertension Confirmed Active Severe aortic stenosis Confirmed Active Vital Signs Most recent to oldest [Reference Range]: 1 Height 172.7 cm (10/05/24 11:03 AM) Weight 73.6 kg (10/05/24 11:03 AM) Oxygen Saturation [94-100 %] 98 % (10/05/24 11:03 AM) Pulse Rate [55-90 bpm] 73 bpm (10/05/24 11:03 AM) Body Mass Index [18.5-24.99 kg/m2] 24.68 kg/m2 (10/05/24 11:03 AM) Blood Pressure [90-138/55-84 mm Hg] 126/ 80mm Hg (10/05/24 11:03 AM) Respiratory Rate [16-30 br/min] 14 br/mi n *L* (10/05/24 11:03 AM) Temperature [96.8-100.4 DegF] 97 DegF (10/05/24 11:03 AM) Mode of Delivery (Oxygen) Room air (10/05/24 11:03 AM) Blood pressure sites Arm, right (10/05/24 11:03 AM) Temperature Route Oral (10/05/24 11:03 AM) Weight Obtained Via Standing scale (10/05/24 11:03 AM) Social History Social History Type Response Smoking Status Never (less than 100 in lifetime) entered on: 09/30/24 Sex Sex Representation Male (finding) Cardiac surgery Outpatient Note * Pavan MC, Waldemar Falcon: PERFORM, MODIFY, MODIFY Event Display: Cardiac Surgery Note Office Authored Date: Patient: ??AICHA ALVAREZ ? Age:??74 Years?Sex:??Male?:??1950?? Provider Clinical Summary He has sustained a recent episode of syncope resulting in??significant cervical spine injury requiring urgent neurosurgical intervention with decompressive cervical laminectomies.?? The TAVR cardiac scan shows significant LVOT calcification which may increase the risk of a TAVR.?? We plan to discuss these findings at the upcoming combined TAVR conference and will arrive at a consensus recommendation on the optimal approach of surgical AVR vs a TAVR for Mr. Alvarez. He and his daughter in law arein agreement with his plan. Chief Complaint TAVR He has shortness of breath when walking to the bathroom. He recently had a syncopal episode which resulted in cervical spinal cord compression requiring urgent surgery. History of Present Illness This 74 year old male with a history of aortic stenosis, HTN and hyperlipidemia sustained an episode of syncope while having a bowel movement which resulted in C3 C4 disc herniation associated with bilateral hand weakness, and unsteady gait and numbness in his arm and legs. He underwent an urgent neurosurgical surgery with posterior decompression and C3 to C6 laminectomies. He has made steady jannette very with mild residual numbness in both arms and both legs. He has been followed for progressive aortic stenosis. He continues to have dyspnea when walking to the bathroom.?? He is able to climb a flight of stairs without difficulty. There has been no history of chest pain. He does not experience o rthopnea or PND. The most recent echocardiogram showed critical aortic stenosis with a peak velocity of 3.4 m/sec and??a mean gradient of 33 mmHg.?? The LV function is normal.?? The KAYLYNN is 0.63 cm2 with a DI of 0.17. A cardiac catheterization in April of 2023 showed a LVEDp of 18 mmHg and a PCWp of 15 mmHg. The mean aortic gradient was 38 mmHg with an KAYLYNN of 0.82 cm2. There was minimal CAD. The cardiac CT scan shows moderate to severe calcification of the LVOT and the subannular regions with two calcific bars extending down to the subaortic curtain. The ascending aorta measures 30 x 31 mm indiameter. The aortic annulus is 24 x 30 mmHg with a mean diameter of 27 mm. He continues to experience lightheadedness with exertion. Review of Systems There is no history of easy bruising or bleeding. Physical Exam Vitals & Measurements T:??97?F?? HR:??73??(Peripheral)?? RR:??14?? BP:??126/80?? SpO2:??98%?? HT:??172.7??cm?? WT:??73.6??kg?? BMI:??24.68? General: Alert, pleasant ? HEENT: Sclera non icteric. EOM full. ? Neck: Well healed midline vertical incision on the posterior neck. Good ROM of the neck with adequate extension and flexion. ?? No masses. No JVD. No bruits ? Resp: Lungs are clear to auscultation. No wheezing. ? CV: Right radial pulse 2+ and regular. Grade III/ systolic murmur heard loudest at the RUSB and radiating to both carotids ? Extrem: No edema.??No cyanosis ? Neuro: No focal deficits Assessment/Plan He has Class 3 symptoms of dyspnea and a recent syncopal episode??c/b severe spine trauma. He is a good candidate for either a surgical AVR or a TAVR. The calculated??STS mortality is 1.7??%.?Due to the the significant LVOT calcification, a TAVR carries an increased risk of potential annular rupture and paravalvar leak. We would therefore recommend a surgical AVR.?? I mentioned to him and his daughter in law that our final recommendation will be made at the combined cardiology and cardiac surgery combined TAVR conference. He is in agreement with this plan. Total Time Spent 60 minutes Problem List/Past Medical History Ongoing Aortic stenosis Hyperlipidemia Hypertension Severe aortic stenosis Medications Metoprolol Tartrate 50 mg oral tablet, 50 mg= 1 tablet, By Mouth, 2 times a day Naproxen, By Mouth, PRN Allergies NKA Social History Tobacco Use: Never (less than 100 in lifetime). Immunizations Vaccine Date Status tetanus/diphtheria/pertussis, acel(Tdap) 08/09/2024 Given * Neeta Neil MA: PERFORM, SIGN, VERIFY Event Display: Cardiac Surgery Note Office Authored Date: [id number] Patient: AICHA ALVAREZ Age: 74 years Sex: Male : 1950 Associated Diagnoses: None Author: Neeta Neil MA [place] Cardiomyopathy Questionnaire (KCCQ-12) The following questions refer to your heart failure and how it may affect your life. Please read and complete the following questions. There is no right or wrong answers. Please aileen the answer that best applies to you. 1. Heart failure affects different people in different ways. Some feel shortness of breath while others feel fatigue. Please indicate how much you are limited by heart failure (shortness of breath orfatigue) in your ability to do the following activities over the past 2 weeks. a. Showering/bathing: Extremely Limited (_) 1 Quite a bit limited (x) 2 Moderately Limited (_) 3 Slightly Limited (_) 4 Not at all Limited (_) 5 Limited for other reasons or did not do the activity (_) 6 b. Walking 1 block on level ground: Extremely Limited (_) 1 Quite a bit limited (_) 2 Moderately Limited (_) 3 Slightly Limited (_) 4 Not at all Limited (x) 5 Limited for other reasons or did not do the activity (_) 6 c. Hurrying or jogging (as if to catch a bus): Extremely Limited (_) 1 Quite a bit limited (_) 2 Moderately Limited (_) 3 Slightly Limited (_) 4 Not at all Limited (x) 5 Limited for other reasons or did not do the activity (_) 6 2. Over the past 2 weeks, how many times did you have swelling in your feet, ankles or legs when you woke up in the morning? Every Morning (_) 1 3 or more times per week but not every day (_) 2 1-2 times per week (_) 3 Less than once a week (_) 4 Never over the past 2 weeks (x) 5 3. Over the past 2 weeks, on average, how many times has fatigue limited your ability to do what you wanted? All of the time (_) 1 Several Times per day (_) 2 At least once a day (_) 3 3 or more times per week but not every day (_) 4 1-2 times per week (_) 5 Less than once a week (x) 6 Never over the past 2 weeks (_) 7 4. Over the past 2 weeks, on average, how many times has shortness of breath limited your ability to do what you wanted? All of the time (_) 1 Several Times per day (_) 2 At least once a day (_) 3 3 or more times per week but not every day (_) 4 1-2 times per week (_) 5 Less than once a week (_) 6 Never over the past 2 weeks (x) 7 5. Over the past 2 weeks, on average, how many times have you been forced to sleep sitting up in a chair or with at least 3 pillows to prop you up because of shortness of breath? Every night (_) 1 3 or more times per week but not every day (_) 2 1-2 times per week (_) 3 Less than once a week (_) 4 Never over the past 2 weeks (x) 5 6. Over the past 2 weeks, how much has your heart failure limited your enjoyment of life? It has extremely limited my enjoyment of life (_) 1 It has limited my enjoyment of life quite a bit (_) 2 It has moderately limited my enjoyment of life (_) 3 It has slightly limited my enjoyment of life (x) 4 It has not limited my enjoyment of life at all (_) 5 7. If you had to spend the rest of your life with your heart failure the way it is right now, how would you feel about this? Not at all satisfied (_) 1 Mostly dissatisfied (_) 2 Somewhat satisfied (x) 3 Mostly satisfied (_) 4 Completely satisfied (_) 5 8. How much does your heart failure affect your lifestyle? Please indicate how your heart failure may have limited your participation in the following activities over the past 2 weeks. a. Hobbies, recreational activities: Severely Limited (_) 1 Limited quite a bit (_) 2 Moderately Limited (_) 3 Slightly Limited (x) 4 Did not limit at all (_) 5 Does not apply or did not do for other reasons (_) 6 b. 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 Visiting family or friends out of your home: Severely Limited (_) 1 Limited quite a bit (_) 2 Moderately Limited (_) 3 Slightly Limited (x) 4 Did not limit at all (_) 5 Does not apply or did not do for other reasons (_) 6 Total Score: 54 * Neeta Neil MA: PERFORM, SIGN, VERIFY Event Display: Cardiac Surgery Note Office Authored Date: [id number] Patient: AICHA ALVAREZ Age: 74 years Sex: Male : 1950 Associated Diagnoses: None Author: Neeta Neil MA TAVR Program Functional Assessment Test The KCCQ12 questionnaire was documented separately from this series of tests. A walk and film flat inspector tests were performed on this patient with the following results: Walk Test- Five-meter Gait Speed #1 - 6.62sec #2 - 8.50sec #3 - 8.50sec Equals = 23.62sec Average = 7.87sec Average Adult Check Viewer Strength (kg) Right: #1 - _kg #2 - _kg #3 - _kg Equals = _kg Average = _kg Graded Classification: _ Left: #1 - _kg #2 - _kg #3 - _kg Equals = _kg Average = _kg Graded Classification: _ Patient Care team information Care Team Personnel Name: Lucita Solomon MD Position: [facility] Outreach Member Role: PCP Address: [address] [place] [address] [address] Lucita Solomon MD [place], [place] [address] Telecom: Name: Reilly Bright RN Position: S RN Member Role: Primary Care Nurse Name: Tanner Braga RN Position: S RN Member Role: Primary Care Nurse Name: Jamaica Hale RN Position: S RN Member Role: Primary Care Nurse Name: Yessica Castro RN Position: S RN Member Role: Primary Care Nurse Name: Jennifer Jang RN Position: S RN Member Role: Primary Care Nurse Name: Ayla Moss RN Position: [facility] RN Member Role: Primary Care Nurse Care Team Related Persons Name: CAIT PACHECO Name: MARGOT VERA Insurance Providers Guarantor name: AICHA ALVAREZ Health Plan Information #: 1 Payer: NA Member Number: [id number] Policy Number: NA Group Number: [id number] Health Plan Information #: 2 Payer: NA Member Number: [id number] Policy Number: NA Group Number: [id number]
--- OUTSIDE RECORDS SUMMARY | 2024-10-28 11:55 | XMS_ITS | Clinical Summary ---
Author Organization [facility] Address [address] [place] [address] Care Team Providers Care Mold Sprayer Name Role Phone Unavailable Primary Care Provider Unavailabl e Allergies No known active allergies Medications No known medications Social History Tobacco Use Types Packs/Day Years Used Date Smoking Tobacco: Never Smokeless Tobacco: Never Sex and Gender Information Value Date Recorded Sex Assigned at Not on file Gender Identity Not on file Sexual Orientation Not on file Last Filed Vital Signs Vital Sign Reading Time Taken Comments Blood Pressure - - Pulse - - Temperature - - Respiratory Rate - - Oxygen Saturation - - Inhaled Oxygen Concentration - - Weight 74.8 kg (165 lb) 12/24/2018 9:08 AM EDT Height 172.7 cm (5' 8 ) 12/24/2018 9:08 AM EDT Body Mass Index 25.09 12/24/2018 9:08 AM EDT Plan of Treatment Health Maintenance Due Date Last Done Comments Hepatitis C Virus Screening 1950 DTaP/Tdap/Td Vaccines (1 - Tdap) 1971 Colonoscopy 1997 Pneumococcal Vaccines 50+ (1 of 1 - PCV) 2002 Zoster (Shingles) Vaccine (1 of 2) 2002 Influenza Vaccine 04/23/2024 COVID-19 Vaccine (1 - 2023-2 5 season) 2024 RSV Vaccine 60 years and old er and Patients (1 - 1-dose 75+ series) 2027 Hepatitis B Vaccines Aged Out No long er eligible based on patient's age to complete this topic
--- OUTSIDE RECORDS SUMMARY | 2024-10-28 11:55 | XMS_ITS | Encounter Summary ---
Author Organization [facility] Address [address] [place] [address] Care Team Providers Care Photo Editor Name Role Phone Unavailable Primary Care Provider Unavailabl e Encounter Details Date Type Department Care Team (Late st Contact Info) Description 12/24/2018 Scanned Document [facility] [address] [place] [address] Kamron Vera MD [address] [place] [id number] Social History Tobacco Use Types Packs/Day Years Used Date Smoking Tobacco: Never Smokeless Tobacco: Never Sex and Gender Information Value Date Recorded Sex Assigned at Not on file Gender Identity Not on file Sexual Orientation Not on file documented as of this encounter Plan of Treatment Not on file documented as of this encounter Visit Diagnoses Not on filedocumented in this encounter
== END 2024-10-28 11:38 | disposition home or self-care (01) ==
PROVIDERS: PCP Internal Medicine; Visit Provider Orthopaedic Surgery
DX: M25.811 Other specified joint disorders, right shoulder (principal)
CPT/HCPCS: 20610; 99213

== ENCOUNTER → 2024-10-28 10:46 | Outpatient (BNVA) | payer MEDICARE, SELFPAY | PROVIDERS: PCP Internal Medicine; Visit Provider Orthopaedic Surgery | DX: M25.811 Other specified joint disorders, right shoulder (principal) | CPT/HCPCS: 20610; 99212; J1010; J2003 ==

== ENCOUNTER 2025-02-27 18:29 | Emergency (ER) | payer MEDICARE, SELFPAY ==
--- NOTE | ~2025-02-27 | CT_ITS ---
CLINICAL HISTORY: fall +HS CT head without contrast Comparison: None Findings: No intra-axial mass, midline shift, hydrocephalus, or acute hemorrhage. No significant atrophy-like change or white matter disease. Mild mucosal thickening throughout the paranasal sinuses. No acute findings in the orbits. No skull fracture. IMPRESSION: 1. No acute intracranial findings. This document has been electronically signed by: Jaelyn Flores MD on 02/27/2025 20:11:30
--- NOTE | ~2025-02-27 | CT_ITS ---
CLINICAL HISTORY: fall CT cervical spine without contrast Comparison: None Findings: Vertebral alignment is within normal limits. Multilevel degenerative changes. Status post bilateral laminectomies from C3 through C5. No acute fractures or dislocations. No acute findings on limited view of the intracranial contents. No cervical fluid collections or masses. No consolidation or effusion at the lung apices. IMPRESSION: 1. No acute cervical spine injury. This document has been electronically signed by: Jaelyn Flores MD on 02/27/2025 20:10:26
--- NOTE | ~2025-02-27 | XR_ITS ---
CLINICAL HISTORY: fall 2 view left forearm Comparison: None Findings: No fractures or dislocations. No joint effusion. Soft tissue swelling and subcutaneous air in the dorsal lateral forearm likely laceration. No radiopaque foreign body. IMPRESSION: Soft tissue swelling and subcutaneous air in the dorsal lateral forearm, likely related to laceration. No radiopaque foreign body or acute fracture. This document has been electronically signed by: Jaelyn Flores MD on 02/27/2025 20:06:44
--- NOTE | ~2025-02-27 | XR_ITS ---
CLINICAL HISTORY: abrasion to L chest 2 view chest x-ray Comparison: None Findings: No consolidation or effusion. Left subclavian pacemaker with leads in the right atrium and right ventricle. Normal heart size. Aortic atherosclerosis. Aortic valve prosthesis. No acute fracture. IMPRESSION: No acute cardiopulmonary findings. This document has been electronically signed by: Jaelyn Flores MD on 02/27/2025 20:03:54
[2025-02-27 18:57] VITALS: BP 169/58; PULSE 71; RESP 18; TEMP 36.7; O2SAT 95; BMI 25.6
--- NOTE | 2025-02-27 18:58 | ED_ITS ---
HPI - General Adult General Chief complaint: Fall Stated complaint: left arm abrasions Time Seen by Provider: 02/27/25 23:35 Source: patient Limitations: language barrier History of Present Illness ED Provider: Joyce Núñez PA-C HPI narrative: 74-year-old male with a history of hypertension, hyperlipidemia, nonrheumatic aortic valve stenosis presents after fall. Patient states he fell while carrying an air conditioner, he lost his balance and subsequently fell forward striking his face, left side of chest and left arm. No loss consciousness, the patient is not on a blood thinner. Patient does not know if his tetanus vaccine is up-to-date. Related Data Home Medications ?Medication ?Instructions ?Recorded ?Confirmed cetirizine 10 mg tablet 10 mg PO DAILY 03/12/24 10/28/24 fluticasone propionate 50 intranasal 03/12/24 10/28/24 mcg/actuation nasal spray,suspension metoprolol tartrate 50 mg tablet 50 mg PO BID 03/12/24 10/28/24 naproxen 500 mg tablet 500 mg PO BID 03/12/24 10/28/24 Allergies Allergy/AdvReac Type Severity Reaction Status Date / Time No Known Allergies Allergy Verified 02/27/25 19:01 Review of Systems Review of Systems: Yes all other systems are reviewed and are negative Constitutional: Constitutional: Denies fatigue, Denies fever(s) and Denies headache(s) ENT: Denies dizziness, Denies headache(s) and Denies neck pain Cardiovascular: Cardiovascular: Reports chest pain Gastrointestinal: Gastrointestinal: Denies abdominal pain, Denies nausea and Denies vomiting Musculoskeletal: Musculoskeletal: Denies back pain, Reports arthralgias and Denies neck pain Neurologic: Denies dizziness and Denies headache(s) Endocrine: Endocrine: Denies fatigue [facility] Past Medical History Attestation statement: The following information was validated with the patient. Medical History Nonrheumatic aortic (valve) stenosis Essential hypertension Surgical History History of cardiac catheterization Family History Family History Mother No problems noted. 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 Physical Exam ED Vital Signs: Vital Signs - 24 hr 02/27/25 18:57 02/28/25 01:46 02/28/25 01:47 Temperature 98.1 F 97.0 F 97.0 F Pulse Rate 71 64 64 Respiratory Rate 18 20 20 Blood Pressure 169/58 H 143/55 H 143/55 H Pulse Oximetry 95 97 97 Oxygen Delivery Method Room Air Room Air Room Air BMI result Body Mass Index 25.6 Const Other: Alert, well-appearing, 2 cm linear laceration deep to subcu tissue, between the brows, no longer bleeding, 2 additional excoriations noted , 1 lateral to the medial canthus of the left eye, the other along the left side of the bridge of the nose, Orientation/consciousness: patient oriented x3 Chest Other: Tenderness to palpation across the anterior chest, however no deformity Resp Effort & Inspection: normal respiratory effort Cardio Other: Normal peripheral perfusion Skin Other: Warm dry no rash, multiple skin tears noted over the left forearm, not bleeding Neuro General: patient oriented x3, gait normal, no focal motor deficits and CN's II- XI intact bilaterally Psych Other: Cooperative Course Course Course Narrative: This is a Rapid Medical Exam performed in triage by Nessa Nesbitt PA-C. Full HPI, ROS and PE to be performed by primary ED provider. 74 yo M w/pmhx HTN presenting to the ED c/o L arm abrasions/ecchymosis, L chest wall abrasion and facial laceration s/p fall while putting AC in. Admits to losing balance. Denies LOC or AC use. Tetanus out of date PE: +laceration to L eyebrow, superficial abrasion to L chest wall. +ecchymosis & skin tears to LUE Plan: Head/C-spine CT, CXR, LUE XR Medications Administered Discontinued Medications Generic Name Dose Route Start Last Admin Trade Name Freq PRN Reason Stop Dose Admin Diphtheria/Tetanus/Acell Pertussis 0.5 ml 02/27/25 19:00 02/27/25 22:52 Diphth,Pertus(Acell),Tet Adult 0.5 Ml Syringe IM 02/27/25 19:01 0.5 ml .ONCE ONE Administration Lidocaine/Epinephrine 10 ml 02/27/25 23:52 02/28/25 00:48 Lidocaine Hcl 1%/Epi 1:100,000 10 Ml Vial INFILTRATI 02/27/25 23:53 10 ml ONCE ONE Administration Procedures Laceration Laceration 1: Site: face Size (cm): 2 Description: linear Depth: simple, single layer Local Anesthetic: lidocaine 1% and with epi Amount of anesthesia used (mL): 2 Pre-repair: irrigated extensively Skin layer closed with: vicryl Size (cm): 5-0 Number of sutures: 5 Technique: simple, interrupted Medical Decision Making Medical Decision Making MDM Narrative: 74-year-old male with a history of hypertension, hyperlipidemia, nonrheumatic aortic valve stenosis presents after fall. Patient states he fell while carrying an air conditioner, he lost his balance and subsequently fell forward striking his face, left side of chest and left arm. No loss consciousness, the patient is not on a blood thinner. Patient does not know if his tetanus vaccine is up-to-date. No chronic relevant issues History: Per patient I have considered the following differential diagnoses: Intracranial hemorrhage, cervical spine injury, fracture, dislocation, contusion, laceration, excoriation, skin tear Plan: CT scans of the brain and cervical spine ordered from triage, they are negative. X-rays of the forearm and chest ordered as well there was no acute fracture. The laceration will require simple repair, updating the tetanus vaccine. I have independently reviewed the following tests: CT brain:Findings: No intra-axial mass, midline shift, hydrocephalus, or acute hemorrhage. No significant atrophy-like change or white matter disease. Mild mucosal thickening throughout the paranasal sinuses. No acute findings in the orbits. No skull fracture. IMPRESSION: 1. No acute intracranial findings. CT cervical spine: Findings: Vertebral alignment is within normal limits. Multilevel degenerative changes. Status post bilateral laminectomies from C3 through C5. No acute fractures or dislocations. No acute findings on limited view of the intracranial contents. No cervical fluid collections or masses. No consolidation or effusion at the lung apices. IMPRESSION: 1. No acute cervical spine injury. Chest x-ray:indings: No consolidation or effusion. Left subclavian pacemaker with leads in the right atrium and right ventricle. Normal heart size. Aortic atherosclerosis. Aortic valve prosthesis. No acute fracture. IMPRESSION: No acute cardiopulmonary findings. X-ray left forearm:Findings: No fractures or dislocations. No joint effusion. Soft tissue swelling and subcutaneous air in the dorsal lateral forearm likely laceration. No radiopaque foreign body. IMPRESSION: Soft tissue swelling and subcutaneous air in the dorsal lateral forearm, likely related to laceration. No radiopaque foreign body or acute fracture. Discharge Plan Discharge Clinical Impression: Facial laceration, Skin tear of forearm without complication Patient Disposition: Home, Self-Care Instructions: Laceration (ED), Care For Your Absorbable Stitches (ED) Additional Instructions: Were used to repair the laceration. They will dissolve on their own. See home care instructions. In regard to the skin tears, keep the area clean and dry, you can change the dressing every 2-3 days, you can apply [id number] antibiotic ointment. You should follow up with your primary care provider, call Saturday to make an appointment. Your tetanus vaccine was updated it is valid for 10 years. Prescriptions: No Action naproxen 500 mg tablet 500 mg PO BID metoprolol tartrate 50 mg tablet 50 mg PO BID fluticasone propionate 50 mcg/actuation spray,suspension intranasal cetirizine 10 mg tablet 10 mg PO DAILY Stand Alone Forms: Work/School Release Interventions: ED Discharge Assessment Last Done: 02/28/25 01:47 Discharge Date/Time: 02/28/25 01:48 Print Language: Arabic
--- OUTSIDE RECORDS SUMMARY | 2025-02-27 22:35 | XMS_ITS | Clinical Summary ---
Author Organization [facility] Address [address] [place] [address] Care Team Providers Care Donor Support Technician Name Role Phone Unavailable Primary Care Provider Unavailabl e Allergies No known active allergies Medications No known medications Social History Tobacco Use Types Packs/Day Years Used Date Smoking Tobacco: Never Smokeless Tobacco: Never Sex and Gender Information Value Date Recorded Sex Assigned at Not on file Legal Sex Male 10:37 AM EDT Gender Identity Not on file Sexual Orientation [...] Zoster (Shingles) Vaccine (1 of 2) 2002 COVID-19 Vaccine ( - 2023-2 5 season) 2024 Influenza Vaccine 04/23/2025 RSV Vaccine 60 years and old er and Patients (1 - 1-dose 75+ series) 2027 Hepatitis B Vaccines Aged Out No long er eligible based on patient's age to complete this topic Insurance [employer] MEDICARE
[2025-02-27] MEDS: Diphth,Pertus(ACell),Tet Adult 0.5 ML SYRINGE IM (22:52)
[2025-02-28] MEDS: Lidocaine HCl 1%/Epi 1:100,000 10 ML VIAL INFILTRATI (00:48)
[2025-02-28 01:46] VITALS: BP 143/55; PULSE 64; RESP 20; TEMP 36.1; O2SAT 97
[2025-02-28 01:47] VITALS: BP 143/55; PULSE 64; RESP 20; TEMP 36.1; O2SAT 97
== END 2025-02-28 01:48 | disposition home or self-care (01) ==
PROVIDERS: Emergency Provider Emergency Medicine; PCP Internal Medicine
DX: S29.9XXA Unspecified injury of thorax, initial encounter (principal); S01.81XA Laceration without foreign body of other part of head, initial encounter; W19.XXXA Unspecified fall, initial encounter; Y93.89 Activity, other specified; Y92.9 Unspecified place or not applicable; Y99.9 Unspecified external cause status; Z23 Encounter for immunization
CPT/HCPCS: 12011; 70450; 71046; 72125; 73090; 90471; 90715; 99283; 99284; J2004

== ENCOUNTER → 2025-02-27 19:00 | Outpatient (BNV) | payer MEDICARE, SELFPAY | PROVIDERS: PCP Internal Medicine; Visit Provider Radiology Diagnostic Radiology | DX: M54.2 Cervicalgia (principal); S09.90XA Unspecified injury of head, initial encounter; S20.312A Abrasion of left front wall of thorax, initial encounter; W19.XXXA Unspecified fall, initial encounter; R22.32 Localized swelling, mass and lump, left upper limb | CPT/HCPCS: 70450; 71046; 72125; 73090 ==

== ENCOUNTER 2025-05-05 11:21 | Outpatient (AMB) | payer MEDICARE, SELFPAY ==
--- NOTE | 2025-05-05 11:22 | A.OFFVIS_ITS ---
Vital Signs 05/05/25 11:23 Height 5 ft 8 in Weight 168 lb BMI 25.5 Intake Visit Reasons: OV-impingement of rt shoulder last inj 10/28/24 Intake Note: Ethan is a 74 year old male who presents with complaints of right shoulder pain. He describes his pain as sharp in nature. Most of the pain is along the lateral aspect of his right shoulder. He has had cortisone injections in the past which gave him fairly good relief. He denies any weakness. He has tried Tylenol and anti-inflammatory medicines which gave him minimal relief. He would like to hold off on surgery if at all possible. Client Development Director Required: Yes Client Development Director Language: Wafer Polisher Name: Placido ([id number]) Allergies No Known Allergies Allergy (Verified 05/05/25 11:25) Medication List - Last Reconciled 05/05/25 by Alexandru Wise MD losartan 50 mg PO DAILY metoprolol tartrate 50 mg PO BID [facility] Medical History Nonrheumatic aortic (valve) stenosis Essential hypertension Surgical History History of cardiac catheterization Family History Mother No problems noted. 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 Physical Exam Vital Signs: BMI result Body Mass Index 25.5 Const Other: Well-nourished well-developed very friendly male awake alert and oriented x3 in no acute distress Extrem Other: Bilateral upper extremity examination shows good capillary refill, no skin lesions noted, normal sensation light touch Right shoulder examination shows slightly decreased range of motion when compared to his left shoulder, positive impingement signs, 4+ out of 5 strength with supraspinatus testing, no instability Office Procedures AMB Joint Injection/Aspiration Joint Injection/Aspiration Primary Site: right shoulder Prep: site was prepped using aseptic technique Injected: 40 mg of, DepoMedrol and 1% plain lidocaine Procedure: The patient tolerated the procedure well Coding 05401 - Large joint Procedure code (CPT) selection complete Assessment & Plan Assessment & Plan (1) Impingement of right shoulder: Code(s): M25.811 - Other specified joint disorders, right shoulder Category: Medical Plan Ethan presents with right shoulder pain due to impingement syndrome. The risks and benefits of a right shoulder cortisone injection were discussed at length with the patient. The patient wished to proceed. He tolerated the injection well. He will continue with his home stretching program to prevent stiffness. He will contact me prior to his follow-up appointment in 3 months should any questions or concerns arise. Feel free to call me at any time should questions regarding his orthopedic management arise. I spent 21 minutes in reviewing the patient's records and imaging studies, seeing the patient and documenting in the medical record. Orders: Orders AMB Joint Injection/Aspiration Today M25.811 - Other specified joint disorders, right shoulder Coding Level of Care Code Est Pt Level 3 (34268) Complex EM visit Add On G2211 Diagnoses Impingement of right shoulder M25.811 CPT Codes Coding - 36880 Large joint: 26580 - Large joint ([id number])
[2025-05-05 11:23] VITALS: BMI 25.5
--- OUTSIDE RECORDS SUMMARY | 2025-05-05 12:19 | XMS_ITS | Clinical Summary ---
Author Organization [facility] Address [address] [place] [address] Care Team Providers Care Mobile Security Specialist Name Role Phone Unavailable Primary Care Provider [...]
== END 2025-05-05 11:51 | disposition home or self-care (01) ==
LOC: HO.HOS 11:22
PROVIDERS: PCP Internal Medicine; Visit Provider Orthopaedic Surgery
DX: M25.811 Other specified joint disorders, right shoulder (principal)
CPT/HCPCS: 20610; 99213

== ENCOUNTER → 2025-05-05 11:21 | Outpatient (BNVA) | payer MEDICARE, SELFPAY | PROVIDERS: PCP Internal Medicine; Visit Provider Orthopaedic Surgery | DX: M25.511 Pain in right shoulder (principal); M25.811 Other specified joint disorders, right shoulder | CPT/HCPCS: 20610; 99212; J1010; J2003 ==

== ENCOUNTER 2025-08-11 10:57 | Outpatient (AMB) | payer MEDICARE, SELFPAY ==
--- NOTE | 2025-08-11 11:32 | A.OFFVIS_ITS ---
Intake Visit Reasons: Right shoulder pain Intake Note: Ethan is a 75 year old male who presents with complaints of right shoulder pain. He describes his pain as sharp in nature. Most of the pain is along the lateral aspect of his shoulder. Denies any weakness. He has tried Tylenol and anti- inflammatory medicines which gave him minimal relief. He has also done physical therapy exercises which aggravated his pain. He wishes to hold off on surgery if at all possible. Has had cortisone injections in the past which gave him good relief. Allergies No Known Allergies Allergy (Verified 08/11/25 11:32) Medication List - Last Reconciled 08/11/25 by Alexandru Wise MD losartan 50 mg PO DAILY metoprolol tartrate 50 mg PO BID [facility] Medical History Nonrheumatic aortic (valve) stenosis Essential hypertension Surgical History History of cardiac catheterization Family History Mother No problems noted. 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 Physical Exam Const Other: Well-nourished well-developed very friendly male awake alert and oriented x3 in no acute distress Extrem Other: Right shoulder examination shows full range of motion when compared to his left shoulder, 4+ out of 5 strength with supraspinatus testing, positive impingement signs, no instability Office Procedures AMB Joint Injection/Aspiration Joint Injection/Aspiration Primary Site: Right Shoulder Prep: site was prepped using aseptic technique Injected: 40 mg of, DepoMedrol, with 3 mL of and 1% plain Lidocaine Procedure: The patient tolerated the procedure well Coding 87844 - Large joint Procedure code (CPT) selection complete Assessment & Plan Assessment & Plan (1) Impingement of right shoulder: Code(s): M25.811 - Other specified joint disorders, right shoulder Category: Medical (2) Right shoulder pain: Code(s): M25.511 - Pain in right shoulder Category: Medical Plan Mr. Antonio Herrmann presents with right shoulder pain due to impingement syndrome. The risks and benefits of a right shoulder cortisone injection were discussed at length with the patient. The patient wished to proceed. He tolerated the injection well. He will continue with his home stretching program to prevent stiffness. He will contact me prior to his follow-up appointment in 3 months should any questions or concerns arise. Feel free to call me at any time should questions regarding his orthopedic management arise. I spent 20 minutes in reviewing the patient's records and imaging studies, seeing the patient and documenting in the medical record. Orders: Orders AMB Joint Injection/Aspiration Today M25.811 - Other specified joint disorders, right shoulder Coding Level of Care Code Est Pt Level 3 (88244) Complex EM visit Add On G2211 Diagnoses Impingement of right shoulder M25.811 Right shoulder pain M25.511 CPT Codes Coding - 11333 Large joint: 39600 - Large joint ([id number])
--- OUTSIDE RECORDS SUMMARY | 2025-08-11 21:38 | XMS_ITS | Clinical Summary ---
Author Organization [facility] Address [address] [place] [address] Care Team Providers Care Paper Deliverer Name Role Phone Unavailable Primary Care Provider [...] Health Maintenance Due Date Last Done Comments Advance Care Planning 1950 Hepatitis C Virus Screening 1950 DTaP/Tdap/Td Vaccines (1 - Tdap) 1971 Colonoscopy 1997 Pneumococcal Vaccines 50+ (1 of 1 - PCV) 2002 Zoster (Shingles) Vaccine (1 of 2) 2002 Influenza Vaccine 04/23/2025 COVID-19 Vaccine ( - 2023-2 5 season) 2025 RSV Vaccine 50 years and old er and Patients (1 - 1-dose 75+ series) 2027 Hepatitis B Vaccines Aged Out No long er eligible based on patient's age to complete this topic Insurance [employer] M[employer] MEDICARE
--- OUTSIDE RECORDS SUMMARY | 2025-08-11 21:38 | XMS_ITS | Encounter Summary ---
Author Organization [facility] Address [address] [place] [address] Care Team Providers Care Airborne Electronics Analyst Name Role Phone Unavailable Primary Care Provider Unavailabl e Encounter Details Date Type Department Care Team (Late st Contact Info) Description 12/24/2018 Scanned Document [facility] [address] [place] [address] Kamron Vera MD [address] [place] [address] [id number] Social History Tobacco Use Types Packs/Day Years [...]
== END 2025-08-11 11:53 | disposition home or self-care (01) ==
LOC: HO.HOS 10:57
PROVIDERS: PCP Internal Medicine; Visit Provider Orthopaedic Surgery
DX: M25.811 Other specified joint disorders, right shoulder (principal); M25.511 Pain in right shoulder
CPT/HCPCS: 20610; 99213

== ENCOUNTER → 2025-08-11 10:57 | Outpatient (BNVA) | payer MEDICARE, SELFPAY | PROVIDERS: PCP Internal Medicine; Visit Provider Orthopaedic Surgery | DX: M25.811 Other specified joint disorders, right shoulder (principal); M25.511 Pain in right shoulder | CPT/HCPCS: 20610; 99212; J1010; J2003 ==

== ENCOUNTER 2025-08-23 09:54 | Outpatient (REF) | payer MEDICARE, SELFPAY ==
[2025-08-23 10:18] LABS: MANUAL DIFF FLAG NO
[2025-08-23 10:42] LABS: Hematocrit 44.7 % (42.0-52.0); Hemoglobin 14.7 g/dl (14.0-18.0); Imm Gran Abs Auto 0.05 X10*3/uL (0.00-0.03); Imm Gran Pct Auto 0.6 % (0.0-0.4); Lymphocytes Absolute Auto 2.8 X10*3/uL (1.2-4.9); Mean Corpuscular HGB Conc 32.9 g/dl (31.0-36.0); Mean Corpuscular Hemoglobin 30.1 pg (27.0-33.0); Mean Corpuscular Volume 91.6 fL (80.0-98.0); NRBC Abs Auto 0.000 X10*3/uL (0.0-0.012); NRBC Pct Auto 0.0 /100WBC (0.0-0.2); Platelet Count 212 X10*3/uL (160-400); Red Blood Count 4.88 X10*6/uL (4.60-5.80); White Blood Count 8.9 X10*3/uL (4.8-10.8)
--- OUTSIDE RECORDS SUMMARY | 2025-08-23 12:01 | XMS_ITS | Encounter Summary ---
Author Organization [facility] Address [address] [place] [address] Care Team Providers Care Byproducts Supervisor Name Role Phone Unavailable Primary Care Provider Unavailabl e Encounter Details Date Type Department Care Team (Late st Contact Info) Description 12/24/2018 Scanned Document [facility] [address] [place] [address] Kamron Vera MD [address] [place] [address] [phone] Social History Tobacco Use Types Packs/Day Years [...]
--- OUTSIDE RECORDS SUMMARY | 2025-08-23 12:01 | XMS_ITS | Clinical Summary ---
Author Organization [facility] Address [address] [place] [address] Care Team Providers Care Fruit Thinner Machine Operator Name Role Phone Unavailable Primary Care Provider [...]
[2025-08-23 12:05] LABS: Alanine Aminotransferase 23 U/L (0-40); Albumin Level 4.5 g/dL (3.5-5.0); Alkaline Phosphatase 65 U/L (39-117); Anion Gap 13 (12-20); Aspartate Amino Transferase 36 U/L (5-37); Blood Urea Nitrogen 17 mg/dL (9-16); Calcium 9.2 mg/dL (8.4-10.2); Carbon Dioxide 27 mmol/L (22-29); Chloride 105 mmol/L (96-108); Cholesterol 185 mg/dL (<200); Estimated Glomerular Filt Rate > 60; HDL Cholesterol 54 mg/dL (>40); Potassium 4.5 mmol/L (3.3-5.1); Sodium 140 mmol/L (135-145); Total Protein 7.5 g/dL (6.5-8.0); Triglycerides 110 mg/dL (<150)
== END 2025-08-23 09:55 | disposition home or self-care (01) ==
LOC: HO.LAB 09:54
PROVIDERS: Absent Provider Internal Medicine; PCP Internal Medicine; Visit Provider Internal Medicine Cardiovascular Disease
DX: I35.0 Nonrheumatic aortic (valve) stenosis (principal); E78.00 Pure hypercholesterolemia, unspecified; I10 Essential (primary) hypertension; J45.909 Unspecified asthma, uncomplicated; M48.02 Spinal stenosis, cervical region; N40.0 Benign prostatic hyperplasia without lower urinary tract symptoms; Z12.5 Encounter for screening for malignant neoplasm of prostate
CPT/HCPCS: 36415; 80053; 80061; 84153; 85025